=== PATIENT | male | born 1990 | race Caucasian/White ===

== ENCOUNTER 2018-09-24 21:04 | Emergency (ER) | payer MEDICAID ==
--- NOTE | 2018-09-24 21:20 | ERPHSYRPT ---
- History of Present Illness Time Seen by Provider: 09/24/18 21:20 Source: patient, family Exam Limitations: no limitations Physician History: 28 y/o white male with no allergies presents to ED soon after being stung by a wasp. right forearm swelled up and has associated redness. mild pain. pt did not take anything for it. Timing/Duration: today Severity: mild Associated Symptoms: denies symptoms, No nausea, No vomiting, No abdominal pain , No shortness of breath, No chest pain Allergies/Adverse Reactions: No Known Drug Allergies Allergy (Unverified 09/24/18 21:10) - Review of Systems Constitutional: No Symptoms Eyes: No Symptoms Ears, Nose, & Throat: No Symptoms Respiratory: No Symptoms Cardiac: No Symptoms Abdominal/Gastrointestinal: No Symptoms Genitourinary Symptoms: No Symptoms Skin: Other (mild localized swelling redness right forearm.) Neurological: No Symptoms Psychological: No Symptoms Endocrine: No Symptoms Hematologic/Lymphatic: No Symptoms Immunological/Allergic: No Symptoms All Other Systems: Reviewed and Negative - Past Medical History Pertinent Past Medical History: Yes Neurological History: No Pertinent History ENT History: No Pertinent History Cardiac History: No Pertinent History Respiratory History: No Pertinent History Endocrine Medical History: No Pertinent History Musculoskeletal History: No Pertinent History GI Medical History: No Pertinent History History: No Pertinent History Psycho-Social History: No Pertinent History Male Reproductive Disorders: No Pertinent History - Past Surgical History Neuro Surgical History: No Pertinent History Cardiac: No Pertinent History Respiratory: No Pertinent History Gastrointestinal: No Pertinent History Genitourinary: No Pertinent History Musculoskeletal: No Pertinent History Male Surgical History: No Pertinent History - Nursing Vital Signs Nursing Vital Signs: Initial Vital Signs Temperature 98.2 F 09/24/18 21:11 Pulse Rate 87 09/24/18 21:11 Blood Pressure 146/86 09/24/18 21:11 O2 Sat by Pulse Oximetry 98 09/24/18 21:11 Pain Scale Pain Intensity 2 - Physical Exam General Appearance: no apparent distress, alert, anxiety Eye Exam: PERRL/EOMI, eyes nml inspection Ears, Nose, Throat Exam: normal ENT inspection, moist mucous membranes Neck Exam: normal inspection, non-tender, supple, full range of motion Respiratory Exam: normal breath sounds, lungs clear, airway intact, No chest tenderness, No respiratory distress Cardiovascular Exam: regular rate/rhythm, normal heart sounds Gastrointestinal/Abdomen Exam: No tenderness Rectal Exam: not done, No tenderness Back Exam: normal inspection, normal range of motion, No vertebral tenderness Extremity Exam: normal inspection, normal range of motion, No pelvis stable Neurologic Exam: alert, oriented x 3, cooperative, protozoology teacher II-XII nml as tested Skin Exam: other (localized swelling and redness right forearm around wasp sting site) Lymphatic Exam: No adenopathy SpO2 Interpretation: normal O2 Delivery: Room Air - Course Nursing assessment & vital signs reviewed: Yes Ordered Tests: Medication Summary Generic Name Dose Route Start Last Admin Trade Name Freq PRN Reason Stop Dose Admin Prednisone 20 mg 09/25/18 21:56 Deltasone 20 Mg PO 09/25/18 21:57 STAT ONE Discontinued Medications Generic Name Dose Route Start Last Admin Trade Name Freq PRN Reason Stop Dose Admin Diphenhydramine HCl 50 mg 09/24/18 21:56 Benadryl 25 Mg Capsule PO 09/24/18 21:57 STAT ONE Diphenhydramine HCl Confirm 09/24/18 22:00 Benadryl 25 Mg Capsule Administered 09/24/18 22:01 Dose 50 mg .ROUTE .STK-MED ONE Famotidine 20 mg 09/24/18 21:55 Pepcid 20 Mg PO 09/24/18 21:56 STAT ONE Famotidine Confirm 09/24/18 22:00 Pepcid 20 Mg Administered 09/24/18 22:01 Dose 20 mg .ROUTE .STK-MED ONE Prednisone Confirm 09/24/18 22:00 Deltasone 20 Mg Administered 09/24/18 22:01 Dose 20 mg .ROUTE .STK-MED ONE - Progress Progress: improved Counseled pt/family regarding: diagnosis, need for follow-up - Departure Departure Disposition: Home Clinical Impression: Allergic reaction Condition: Stable Critical Care Time: No Additional Instructions: keep area clean daily. add benadryl 25mg orally 3 times daily for 4 days. return to ED if symptoms worsen. Prescriptions: Prednisone 10 mg [Deltasone 10 mg] 10 mg PO TID #12 tablet Ranitidine HCl [Zantac] 150 mg PO BID 5 Days #10 tablet
[2018-09-24] MEDS ORDERED: DELTASONE 20 MG ONE (22:00)
[2018-09-24] MEDS ORDERED: Pepcid 20 MG ONE (22:00)
[2018-09-24] MEDS ORDERED: BENADRYL 25 MG CAPSULE ONE (22:00)
[2018-09-24] MEDS: Pepcid 20 MG PO ONE (22:07)
[2018-09-24] MEDS: DELTASONE 20 MG PO ONE (22:07)
[2018-09-24] MEDS: BENADRYL 25 MG CAPSULE PO ONE (22:07)
[2018-09-24 22:10] VITALS: BP 131/71; PULSE 76; O2SAT 99
== END 2018-09-24 22:20 | disposition home or self-care (01) ==
LOC: ED 21:04
DX: M79.89 Other specified soft tissue disorders (principal); T63.441A Toxic effect of venom of bees, accidental (unintentional), initial encounter
CPT/HCPCS: 99283; A9270-GY

== ENCOUNTER 2018-11-30 17:44 | Emergency (ER) | payer MEDICAID ==
[2018-11-30 18:04] VITALS: BP 156/88; PULSE 84; O2SAT 99
--- NOTE | 2018-11-30 18:37 | ERPHSYRPT ---
- History of Present Illness Time Seen by Provider: 11/30/18 18:10 Source: patient Exam Limitations: no limitations Patient Subjective Stated Complaint: pt reports he has a bad tooth, right side molar, reports he was seen at [facility] and treated with amoxicillin, states his condition did not improve so he saw a dentist and was prescribed clindamycin on 11/27/18, 300mg TID, reports he only took 4 doses. pt now reports that he believes he is having an allergic reaction to the clindamycin. reports diarrhea , feeling lightheaded, and tired. pt states his dentist plans to extract this tooth monday. pt denies any rash, shortness of breath, or pain at this time. Triage Nursing Assessment: pt is aox3, pt appears in no apparent distress, pupils perrl, afebrile, resps easy and non labored, pt with swelling to the right side of the face. pt skin pink warm dry. Physician History: Thinks the Clindamycin (300 TID) is causing his diarrhea - on two days after Amoxicillin and had been getting swollen R face. Severity: moderate (Swelling - not pain) Allergies/Adverse Reactions: cephalexin [From Keflex] Adverse Reaction (Verified 11/30/18 18:06) dehydration pt reports when he took keflex he became severely dehydrated, denied any rash, shortness of breath or pain. Hx Tetanus, Diphtheria Vaccination/Date Given: No Hx Influenza Vaccination/Date Given: No Hx Pneumococcal Vaccination/Date Given: No Immunizations Up to Date: Yes - Review of Systems Constitutional: No Symptoms, No Fever, No Chills Eyes: No Symptoms Ears, Nose, & Throat: Other (R face swelling) All Other Systems: Reviewed and Negative - Past Medical History Pertinent Past Medical History: No Neurological History: No Pertinent History ENT History: No Pertinent History Cardiac History: No Pertinent History Respiratory History: No Pertinent History Endocrine Medical History: No Pertinent History Musculoskeletal History: No Pertinent History GI Medical History: No Pertinent History History: No Pertinent History Psycho-Social History: No Pertinent History Male Reproductive Disorders: No Pertinent History - Past Surgical History Past Surgical History: No Neuro Surgical History: No Pertinent History Cardiac: No Pertinent History Respiratory: No Pertinent History Gastrointestinal: No Pertinent History Genitourinary: No Pertinent History Musculoskeletal: No Pertinent History Male Surgical History: No Pertinent History - Social History Smoking Status: Current every day smoker Exposure to second hand smoke: Yes Drug Use: none Patient Lives Alone: No - Nursing Vital Signs Nursing Vital Signs: Initial Vital Signs Temperature 97.6 F 11/30/18 17:52 Pulse Rate 84 11/30/18 17:52 Respiratory Rate 20 11/30/18 17:52 Blood Pressure 156/88 11/30/18 17:52 O2 Sat by Pulse Oximetry 99 11/30/18 17:52 Pain Scale Pain Intensity 0 - Physical Exam General Appearance: no apparent distress Eye Exam: PERRL/EOMI, eyes nml inspection Ears, Nose, Throat Exam: normal ENT inspection, TMs normal, pharynx normal, moist mucous membranes, other (mild R maxillary edema), No pharyngeal erythema Neck Exam: normal inspection, non-tender, supple, full range of motion Respiratory Exam: normal breath sounds, chest tenderness, lungs clear Cardiovascular Exam: regular rate/rhythm, normal heart sounds Neurologic Exam: alert, oriented x 3, cooperative Skin Exam: normal color, warm, dry, No rash SpO2: 99 - Course Nursing assessment & vital signs reviewed: Yes - Progress Progress Note: 12/01/18 19:51 Educated patient that it most likely was not a true allergy to clindamyacin; that it would be better if he could continue with th RX on thru Monday when she sees dentist for tooth extraction. Patient and spouse voiced understanding and satisfaction. 12/01/18 19:53 - Departure Departure Disposition: Home Clinical Impression: Dental abscess Condition: Good Critical Care Time: No Referrals: DOCTOR,NO FAMILY [Primary Care Provider] - Additional Instructions: Resume taking the Clindamyacin - best to take three times a day; if diarrhea worsens - may try twice a day - but best to continue to take it until the dentist sees you Monday for definitive care. If face swells more and you are running a fever of 101.5 or above, return to ER. Keep well hydrated while having the diarrhea.
== END 2018-11-30 19:04 | disposition home or self-care (01) ==
LOC: ED 17:44
DX: K04.7 Periapical abscess without sinus (principal)
CPT/HCPCS: 99283

== ENCOUNTER 2019-11-04 08:39 | Emergency (ER) | payer SELFPAY ==
[2019-11-04 08:48] VITALS: BP 138/78; PULSE 83; O2SAT 98
--- NOTE | 2019-11-04 08:55 | ERPHSYRPT ---
- History of Present Illness Time Seen by Provider: 11/04/19 08:47 Source: patient Patient Subjective Stated Complaint: Pt states that he woke up this morning with his left upper side of cheek/jaw was swollen, pt states that he has a broken tooth but dentist isn't open until tomorrow, denies any pain Triage Nursing Assessment: Pt brought self to the ER, vitals wnl, left cheek swollen, tooth has been broken for about a year but hasn't had any issues until this morning, denies any other probelems and denies pain Physician History: 29 years old male with history of bad dentition presented in the ER with chief complaint of left facial swelling when he woke up this morning associated with some pressure and tightness. Patient report he has a broken tooth few days ago left upper but denies any pain in the tooth. No fever or chills reported. Reports discomfort with movements of jaw. Timing/Duration: abrupt onset Severity: moderate ENT Location: facial Prearrival Treatment: no prearrival treatment Allergies/Adverse Reactions: cephalexin [From Keflex] Adverse Reaction (Verified 11/04/19 08:48) dehydration pt reports when he took keflex he became severely dehydrated, denied any rash, shortness of breath or pain. Hx Tetanus, Diphtheria Vaccination/Date Given: No Hx Influenza Vaccination/Date Given: No Hx Pneumococcal Vaccination/Date Given: No Travel Risk - International Travel Have you traveled outside of the country in past 3 weeks: No - Coronavirus Screening Are you exhibiting any of the following symptoms?: No Close contact with a COVID-19 positive Pt in past 14-21 Days: No - Review of Systems Constitutional: No Symptoms Eyes: No Symptoms Respiratory: No Symptoms Cardiac: No Symptoms Abdominal/Gastrointestinal: No Symptoms Genitourinary Symptoms: No Symptoms Musculoskeletal: No Symptoms Skin: No Symptoms Neurological: No Symptoms Psychological: No Symptoms Endocrine: No Symptoms Hematologic/Lymphatic: No Symptoms Immunological/Allergic: No Symptoms - Past Medical History Pertinent Past Medical History: No Neurological History: No Pertinent History ENT History: No Pertinent History Cardiac History: No Pertinent History Respiratory History: No Pertinent History Endocrine Medical History: No Pertinent History Musculoskeletal History: No Pertinent History GI Medical History: No Pertinent History History: No Pertinent History Psycho-Social History: No Pertinent History Male Reproductive Disorders: No Pertinent History - Past Surgical History Past Surgical History: No Neuro Surgical History: No Pertinent History Cardiac: No Pertinent History Respiratory: No Pertinent History Gastrointestinal: No Pertinent History Genitourinary: No Pertinent History Musculoskeletal: No Pertinent History Male Surgical History: No Pertinent History - Social History Smoking Status: Current every day smoker Exposure to second hand smoke: Yes Drug Use: none Patient Lives Alone: Yes - Nursing Vital Signs Nursing Vital Signs: Initial Vital Signs Temperature 97.9 F 11/04/19 08:44 Pulse Rate 83 11/04/19 08:44 Blood Pressure 138/78 11/04/19 08:44 O2 Sat by Pulse Oximetry 98 11/04/19 08:44 Pain Scale Pain Intensity 0 - Physical Exam General Appearance: no apparent distress, alert Eye Exam: bilateral eye: normal inspection, PERRL, EOMI Nasal Exam: normal inspection Throat Exam: normal, pharynx normal, dental tenderness (Upper premolar and molar with broken tooth), maxillary swelling (Left), moist mucus membranes Neck Exam: normal inspection, non-tender, supple, full range of motion Cardiovascular/Respiratory Exam: chest non-tender, normal breath sounds, regular rate/rhythm Neurologic Exam: alert, oriented x 3, cooperative, grinding room supervisor II-XII nml as tested Skin Exam: normal color SpO2 Interpretation: normal SpO2: 98 O2 Delivery: Room Air - Course Nursing assessment & vital signs reviewed: Yes - Progress Progress: unchanged Progress Note: 11/04/19 He is started on Augmentin as patient is developing swelling the left upper jaw to avoid development of abscess. Recommended outpatient dental follo w-up. Counseled pt/family regarding: diagnosis, need for follow-up - Departure Departure Disposition: Home Clinical Impression: Dental infection Condition: Stable Critical Care Time: No Referrals: DOCTOR,NO FAMILY [Primary Care Provider] - LAURA MARTINEZ DDS [NON-STAFF PHY W/O PRIVILEGES] - (call tomorrow for appointment) Instructions: Tooth Abscess (DC), Dental Pain (DC) Additional Instructions: Take Tylenol/ibuprofen as needed for pain. Follow-up with your dentist for reevaluation. Return to ER for any worsening. Prescriptions: Amox Tr/Potass Clav. 875 mg [Augmentin 875-125 Tablet] 875 mg PO BID #20 tablet
== END 2019-11-04 09:02 | disposition home or self-care (01) ==
LOC: ED 08:39
DX: K04.7 Periapical abscess without sinus (principal)
CPT/HCPCS: 99283

== ENCOUNTER 2019-12-09 19:15 | Emergency (ER) | payer MEDICAID ==
[2019-12-09] MEDS ORDERED: Zithromax 250 MG TABLET PO ONE (19:33)
[2019-12-09] MEDS ORDERED: Rocephin 1000 MG INJ ONE (19:37)
[2019-12-09] MEDS ORDERED: Zithromax 250 MG TABLET ONE (19:37)
[2019-12-09] MEDS ORDERED: Rocephin 1000 MG INJ IM ONE (19:37)
--- NOTE | 2019-12-09 20:05 | ERPHSYRPT ---
- History of Present Illness Source: patient Patient Subjective Stated Complaint: pt states "It began to burn while I pee. I have been having dribbling and discharge." pt states, "I think I have chlamydia." Triage Nursing Assessment: pt ambulated into the er; pt is axo x4; c/o burning with urination and discharge; denies pain; urine clear yellow; active bowel sounds in all quads; clear lung sounds in all lobes; no tenderness present with palpation to abdomen; redness present to penis; hypertension Physician History: 29 yo wm w dysuria x1 day/penile discharge x 2 days after having unprotected sex. Pt denies frequency/hematuria/abdominal pain/N/V/D. Timing/Duration: day(s) (2 days) Activites at Onset: sexual activity Quality: other (dysuria) Onset Location: unknown Pain Radiation: none Severity of Pain-Max: mild Severity of Pain-Current: mild Modifying Factors: Improves With: urinating Associated Symptoms: dysuria, No abdominal pain, No fever, No chills, No diaphoresis, No nausea, No vomiting, No nocturia, No polyuria, No urinary f requency, No loss of bladder control, No lower back pain, No lumps, No mass, No swelling, No syncope Prior abdominal problems: none Sexual intercourse history: unprotected intercourse Allergies/Adverse Reactions: cephalexin [From Keflex] Adverse Reaction (Verified 12/09/19 19:20) dehydration pt reports when he took keflex he became severely dehydrated, denied any rash, shortness of breath or pain. Hx Tetanus, Diphtheria Vaccination/Date Given: No Hx Influenza Vaccination/Date Given: No Hx Pneumococcal Vaccination/Date Given: No Travel Risk - International Travel Have you traveled outside of the country in past 3 weeks: No - Coronavirus Screening Are you exhibiting any of the following symptoms?: No Close contact with a COVID-19 positive Pt in past 14-21 Days: No - Past Medical History Pertinent Past Medical History: No Neurological History: No Pertinent History ENT History: No Pertinent History Cardiac History: No Pertinent History Respiratory History: No Pertinent History Endocrine Medical History: No Pertinent History Musculoskeletal History: No Pertinent History GI Medical History: No Pertinent History History: No Pertinent History Psycho-Social History: No Pertinent History Male Reproductive Disorders: No Pertinent History - Past Surgical History Past Surgical History: No Neuro Surgical History: No Pertinent History Cardiac: No Pertinent History Respiratory: No Pertinent History Gastrointestinal: No Pertinent History Genitourinary: No Pertinent History Musculoskeletal: No Pertinent History Male Surgical History: No Pertinent History - Social History Smoking Status: Current every day smoker Exposure to second hand smoke: Yes Drug Use: none Patient Lives Alone: Yes Significant Family History: no pertinent family hx - Review of Systems Constitutional: No Symptoms Eyes: No Symptoms Ears, Nose, & Throat: No Symptoms Respiratory: No Symptoms Cardiac: No Symptoms Abdominal/Gastrointestinal: No Symptoms Musculoskeletal: No Symptoms Skin: No Symptoms Neurological: No Symptoms Psychological: No Symptoms Endocrine: No Symptoms Hematologic/Lymphatic: No Symptoms Immunological/Allergic: No Symptoms - Nursing Vital Signs Nursing Vital Signs: Initial Vital Signs Temperature 97.3 F 12/09/19 19:21 Pulse Rate 70 12/09/19 19:21 Respiratory Rate 16 12/09/19 19:21 Blood Pressure 156/89 12/09/19 19:21 O2 Sat by Pulse Oximetry 100 12/09/19 19:21 Pain Scale Pain Intensity 0 - Physical Exam General Appearance: no apparent distress Eye Exam: PERRL/EOMI Ears, Nose, Throat Exam: normal ENT inspection, TMs normal, pharynx normal, moist mucous membranes Neck Exam: normal inspection, non-tender, supple, full range of motion, No meningismus, No mass, No Brudzinski, No Kernig's Respiratory Exam: normal breath sounds, lungs clear, airway intact, No respiratory distress Cardiovascular Exam: regular rate/rhythm, normal heart sounds, normal peripheral pulses Gastrointestinal/Abdomen Exam: soft, normal bowel sounds, No tenderness Male Genital Exam: normal genitalia Back Exam: normal inspection Extremity Exam: normal inspection, normal range of motion Neurologic Exam: alert, oriented x 3, cooperative, architecture analyst II-XII nml as tested, normal mood/affect, nml cerebellar function, nml station & gait, sensation nml, No motor deficits, No sensory deficit Skin Exam: normal color, warm, dry Lymphatic Exam: No adenopathy SpO2 Interpretation: normal SpO2: 100 O2 Delivery: Room Air - Course Nursing assessment & vital signs reviewed: Yes Ordered Tests: Active Orders 24 hr Category Date Time Status CULTURE,URINE Stat Lab 12/09/19 19:30 Received UA W/RFX UR CULTURE Stat Lab 12/09/19 19:30 Completed Medication Summary Discontinued Medications Generic Name Dose Route Start Last Admin Trade Name Freq PRN Reason Stop Dose Admin Azithromycin 1,000 mg 12/09/19 19:33 12/09/19 19:40 Zithromax 250 Mg Tablet PO 12/09/19 19:34 1,000 mg STAT ONE Administration Azithromycin Confirm 12/09/19 19:37 Zithromax 250 Mg Tablet Administered 12/09/19 19:38 Dose 1,000 mg .ROUTE .STK-MED ONE Ceftriaxone Sodium 1,000 mg 12/09/19 19:37 12/09/19 19:40 Rocephin 1000 Mg Inj IM 12/09/19 19:38 1,000 mg STAT ONE Administration Ceftriaxone Sodium Confirm 12/09/19 19:37 Rocephin 1000 Mg Inj Administered 12/09/19 19:38 Dose 1,000 mg .ROUTE .STK-MED ONE Lab/Rad Data: Laboratory Results 12/09/19 Range/Units 19:30 Urine Color YELLOW (YELLOW) Urine Appearance SLIGHTLY CLOUDY (CLEAR) Urine pH 7.0 (5-6) Ur Specific Mouthcard 1.009 (1.005-1.025) Urine Protein NEGATIVE (Negative) Urine Ketones NEGATIVE (NEGATIVE) Urine Blood NEGATIVE (0-5) Rigo/ul Urine Nitrite NEGATIVE (NEGATIVE) Urine Bilirubin NEGATIVE (NEGATIVE) Urine Urobilinogen NEGATIVE (0-1) mg/dL Ur Leukocyte Esterase LARGE (NEGATIVE) Urine WBC (Auto) 26-50 (0-5) /HPF Urine RBC (Auto) NONE (0-2) /HPF U Epithel Cells (Auto) NONE (FEW) /HPF Urine Bacteria (Auto) FEW (NEGATIVE) /HPF Urine Mucus (Auto) SLIGHT (NEGATIVE) /HPF Urine Yeast (Budding) Few (NEGATIVE) /HPF Urine Culture Reflexed YES (NO) Urine Glucose NEGATIVE (NEGATIVE) mg/dL - Progress Progress Note: 12/09/19 20:04 1gm IM rocephin/1gm po zithromax 12/09/19 20:27 Pt refused HIV/Syphllis/Hep - Departure Departure Disposition: Home Clinical Impression: UTI (urinary tract infection), STD exposure Condition: Stable Critical Care Time: No Referrals: DOCTOR,NO FAMILY [Primary Care Provider] - Instructions: Urinary Tract Infection, Adult (DC) Additional Instructions: You have been treated for gonorrhea/chlamydia Start Bactrim twice a day for 5 days Follow up with your family MD in 2-3 days Return to ER as needed Prescriptions: Smz/Tmp Ds Tablet [Bactrim Ds Tablet] 1 tab PO Q12H #10 tablet
[2019-12-09 20:19] LABS: Appearance SLIGHTLY CLOUDY (CLEAR); Bilirubin NEGATIVE (NEGATIVE); Blood NEGATIVE Ery/ul (0-5); Glucose NEGATIVE (NEGATIVE); Ketones NEGATIVE (NEGATIVE); Leukocyte Esterase LARGE (NEGATIVE); Mucus SLIGHT /HPF (NEGATIVE); Nitrite NEGATIVE (NEGATIVE); Protein,Urine Dip NEGATIVE (Negative); Specific Gravity 1.009 (1.005-1.025); Urobilinogen NEGATIVE mg/dL (0-1); WBC 26-50 /HPF (0-5)
[2019-12-09 20:20] LABS: Bacteria FEW /HPF (NEGATIVE); Budding Yeast Few /HPF (NEGATIVE)
[2019-12-09 20:37] VITALS: BP 132/84; PULSE 64
[2019-12-09 23:41] VITALS: O2SAT 100
== END 2019-12-09 20:37 | disposition home or self-care (01) ==
LOC: ED 19:15
DX: N39.0 Urinary tract infection, site not specified (principal); Z20.2 Contact with and (suspected) exposure to infections with a predominantly sexual mode of transmission
CPT/HCPCS: 81001; 87086; 87491; 87591; 96372; 99284; J0696; A9270-GY

== ENCOUNTER 2020-03-17 22:30 | Emergency (ER) | payer SELFPAY ==
[2020-03-17 22:38] VITALS: BP 157/87; PULSE 68; O2SAT 100
[2020-03-17] MEDS ORDERED: Adacel Vial IM ONE ×2 (22:45→22:53)
[2020-03-17] MEDS ORDERED: Cleocin Phosphate IV 600 MG/4 ML IM STA (22:46)
--- NOTE | 2020-03-17 22:50 | ERPHSYRPT ---
- History of Present Illness Time Seen by Provider: 03/17/20 22:40 Source: patient Patient Subjective Stated Complaint: pt c/o bite to rt side of cheek on face Triage Nursing Assessment: pt c/o some type of bite to rt side of cheek on face which he noticed Monday. Pt states, "it has gotten more swollen and red". Small knot like area noted under the skin, bite terrance itself it 0.2 x 0.2 cm, small amt of edema and redness noted. Pt denies any pain. Physician History: Patient is a 30-year-old male presents to emergency department with cellulitis to the right cheek. Patient states he was bitten by possibly spider at home 2 days ago. Over the past couple days the area became more tender and swollen. The area is now red. No fever. No headache. No nausea or vomiting. Symptoms are mild to moderate in intensity. No specific worsening or improving factors. Patient voices no other complaints or concerns at this time. Timing/Duration: day(s) (2 days ago) Severity: moderate Modifying Factors: Improves With: nothing Associated Symptoms: denies symptoms Allergies/Adverse Reactions: cephalexin [From Keflex] Adverse Reaction (Verified 03/17/20 22:46) dehydration pt reports when he took keflex he became severely dehydrated, denied any rash, shortness of breath or pain. Hx Tetanus, Diphtheria Vaccination/Date Given: No Hx Influenza Vaccination/Date Given: No Hx Pneumococcal Vaccination/Date Given: No Immunizations Up to Date: No Travel Risk - International Travel Have you traveled outside of the country in past 3 weeks: No - Coronavirus Screening Are you exhibiting any of the following symptoms?: No Close contact with a COVID-19 positive Pt in past 14-21 Days: No - Review of Systems Constitutional: No Symptoms, No Fever, No Chills Eyes: No Symptoms Ears, Nose, & Throat: No Symptoms Respiratory: No Symptoms, No Cough, No Dyspnea Cardiac: No Symptoms, No Chest Pain, No Edema, No Syncope Abdominal/Gastrointestinal: No Symptoms, No Abdominal Pain, No Nausea, No Vomiting, No Diarrhea Genitourinary Symptoms: No Symptoms, No Dysuria Musculoskeletal: No Symptoms, No Back Pain, No Neck Pain Skin: No Symptoms, No Rash Neurological: No Symptoms, No Dizziness, No Focal Weakness, No Sensory Changes Psychological: No Symptoms Endocrine: No Symptoms Hematologic/Lymphatic: No Symptoms Immunological/Allergic: No Symptoms All Other Systems: Reviewed and Negative - Past Medical History Pertinent Past Medical History: No Neurological History: No Pertinent History ENT History: No Pertinent History Cardiac History: No Pertinent History Respiratory History: No Pertinent History Endocrine Medical History: No Pertinent History Musculoskeletal History: No Pertinent History GI Medical History: No Pertinent History History: No Pertinent History Psycho-Social History: No Pertinent History Male Reproductive Disorders: No Pertinent History - Past Surgical History Past Surgical History: No Neuro Surgical History: No Pertinent History Cardiac: No Pertinent History Respiratory: No Pertinent History Gastrointestinal: No Pertinent History Genitourinary: No Pertinent History Musculoskeletal: No Pertinent History Male Surgical History: No Pertinent History - Social History Smoking Status: Current every day smoker How long have you smoked: 15 yrs Exposure to second hand smoke: Yes Drug Use: none Patient Lives Alone: Yes Significant Family History: no pertinent family hx - Nursing Vital Signs Nursing Vital Signs: Initial Vital Signs Temperature 98.2 F 03/17/20 22:36 Pulse Rate 68 03/17/20 22:36 Respiratory Rate 16 03/17/20 22:36 Blood Pressure 157/87 03/17/20 22:36 O2 Sat by Pulse Oximetry 100 03/17/20 22:36 Pain Scale Pain Intensity 0 - Physical Exam General Appearance: no apparent distress, alert Eye Exam: PERRL/EOMI, eyes nml inspection Ears, Nose, Throat Exam: normal ENT inspection, TMs normal, pharynx normal, moist mucous membranes Neck Exam: normal inspection, non-tender, supple, full range of motion Respiratory Exam: normal breath sounds, lungs clear, No respiratory distress Cardiovascular Exam: regular rate/rhythm, normal heart sounds, normal peripheral pulses Gastrointestinal/Abdomen Exam: soft, normal bowel sounds, No tenderness, No mass Back Exam: normal inspection, normal range of motion, No CVA tenderness, No vertebral tenderness Extremity Exam: normal inspection, normal range of motion, pelvis stable Neurologic Exam: alert, oriented x 3, cooperative, normal mood/affect, nml cerebellar function, nml station & gait, sensation nml, No motor deficits Skin Exam: normal color, warm, dry, other (Presents with a 0.2 cm x 0.2 cm area that appears to be an abrasion versus a bite of some sort. No residual foreign body observed. The adjacent soft tissue is cellulitic red swollen and warm.), No rash Lymphatic Exam: No adenopathy SpO2 Interpretation: normal SpO2: 100 O2 Delivery: Room Air - Course Nursing assessment & vital signs reviewed: Yes Ordered Tests: Medication Summary Discontinued Medications Generic Name Dose Route Start Last Admin Trade Name María PRN Reason Stop Dose Admin Clindamycin Phosphate 600 mg 03/17/20 22:46 03/17/20 22:54 Cleocin Phosphate Iv 600 Mg/4 Ml IM 03/17/20 22:47 600 mg ONCE STA Administration Clindamycin Phosphate Confirm 03/17/20 22:53 Cleocin Phosphate Iv 600 Mg/4 Ml Administered 03/17/20 22:54 Dose 600 mg .ROUTE .STK-MED ONE Diphtheria/Tetanus/Acell Pertussis 0.5 ml 03/17/20 22:45 03/17/20 22:55 Adacel Vial IM 03/17/20 22:46 0.5 ml .ONCE ONE Administration Diphtheria/Tetanus/Acell Pertussis Confirm 03/17/20 22:53 Adacel Vial Administered 03/17/20 22:54 Dose 0.5 ml IM .STK-MED ONE - Progress Progress: improved Progress Note: 03/17/20 22:59 . He is well. Patient has no pain at this time. We updated patient's tetanus. Patient received 600 mg IM clindamycin. A prescription for the same will be forwarded the patient's pharmacy. Patient does not have a primary care doctor. A primary care doctor was assigned to patient. Patient agrees to follow-up with his primary care doctor within 48 hours for reevaluation. Patient voices no other complaints concerns at this time. Counseled pt/family regarding: diagnosis, need for follow-up - Departure Departure Disposition: Home Clinical Impression: Facial cellulitis Condition: Stable Critical Care Time: No Referrals: DOCTOR,NO FAMILY [Primary Care Provider] - PLACIDO GARCIA MD [ACTIVE STAFF] - Additional Instructions: Discharge/Care Plan SWETHA LOCKE was seen on 03/17/20 in the Emergency Room. The patient was counseled regarding Diagnosis,Lab results, Imaging studies, need for follow up and when to return to the Emergency Room. Prescriptions given: Discharge Note I have spoken with the patient and/or caregivers. I have explained the patient's condition, diagnosis and treatment plan based on the information available to me at this time. I have answered the patient's and/or caregiver's questions and addressed any concerns. The patient and/or caregivers have as good understanding of the patient's diagnosis, condition and treatment plan as can be expected at this point. The vital signs have been stable. The patient's condition is stable and appropriate for discharge from the emergency department. The patient will pursue further outpatient evaluation with the primary care physician or other designated or consulting physician as outlined in the discharge instructions. The patient and/or caregivers are agreeable to this plan of care and follow-up instructions have been explained in detail. The patient and/or caregivers have received these instruction. The patient/and or caregivers are aware that any significant change in condition or worsening of symptoms should prompt an immediate return to this or the closest emergency department or call 911. Prescriptions: Clindamycin HCl 150 mg [Cleocin 150 mg Capsule] 2 cap PO QID 7 Days #56 capsule
[2020-03-17] MEDS ORDERED: Cleocin Phosphate IV 600 MG/4 ML ONE (22:53)
== END 2020-03-17 23:14 | disposition home or self-care (01) ==
LOC: ED 22:30
DX: L03.211 Cellulitis of face (principal); W64.XXXA Exposure to other animate mechanical forces, initial encounter
CPT/HCPCS: 90471; 90715; 96372; 99283

== ENCOUNTER 2020-03-18 18:43 | Emergency (ER) | payer SELFPAY ==
[2020-03-18 18:59] VITALS: BP 133/81; PULSE 74; O2SAT 99
[2020-03-18] MEDS ORDERED: BACTRIM DS TABLET PO ONE (19:08)
[2020-03-18] MEDS: BACTRIM DS TABLET PO ONE (19:08)
--- NOTE | 2020-03-18 19:08 | ERPHSYRPT ---
- History of Present Illness Time Seen by Provider: 03/18/20 18:47 Source: patient Exam Limitations: no limitations Patient Subjective Stated Complaint: Abscess Triage Nursing Assessment: Patient ambulated back to ED and transferred self to bed. Patient A+O X3. Patient's skin pink, warm and dry. Patient was seen last night for abscess to right side of face. Patient was prescribed clindamycin by ER doctor last night and he states it's making him not think right. Patient states every time he takes clinadamycin he feels this way. Patient doesn't have PCP so he came to ED to have atb changed to something else. Patient denies pain or discomfort. Physician History: 30 years male with history of small abscess on the right cheek which started 2 days ago, busted and was evaluated last night, prescribed clindamycin and patient reported in the ER today with feeling fuzzy and not acting right. Patient reports every time he takes clindamycin this happens and wants to have some change antibiotic. Denies any fever or chills. Still have dull aching pain in the right cheek. Denies any swelling of gums or tooth ache. No fever or chills reported. Timing/Duration: today, gradual onset, worse Location: face Possible Causes: no cause identified Associated Symptoms: rash, swelling/mass/lumps Allergies/Adverse Reactions: cephalexin [From Keflex] Adverse Reaction (Verified 03/18/20 18:53) dehydration pt reports when he took keflex he became severely dehydrated, denied any rash, shortness of breath or pain. Hx Tetanus, Diphtheria Vaccination/Date Given: No Hx Influenza Vaccination/Date Given: No Hx Pneumococcal Vaccination/Date Given: No Immunizations Up to Date: Yes Travel Risk - International Travel Have you traveled outside of the country in past 3 weeks: No - Coronavirus Screening Are you exhibiting any of the following symptoms?: No Close contact with a COVID-19 positive Pt in past 14-21 Days: No - Review of Systems Constitutional: No Symptoms Eyes: No Symptoms Ears, Nose, & Throat: No Symptoms Respiratory: No Symptoms Cardiac: No Symptoms Abdominal/Gastrointestinal: No Symptoms Musculoskeletal: No Symptoms Skin: Rash, Skin Lesions Neurological: No Symptoms Psychological: No Symptoms Endocrine: No Symptoms Hematologic/Lymphatic: No Symptoms Immunological/Allergic: No Symptoms - Past Medical History Pertinent Past Medical History: No Neurological History: No Pertinent History ENT History: No Pertinent History Cardiac History: No Pertinent History Respiratory History: No Pertinent History Endocrine Medical History: No Pertinent History Musculoskeletal History: No Pertinent History GI Medical History: No Pertinent History History: No Pertinent History Psycho-Social History: No Pertinent History Male Reproductive Disorders: No Pertinent History - Past Surgical History Past Surgical History: No Neuro Surgical History: No Pertinent History Cardiac: No Pertinent History Respiratory: No Pertinent History Gastrointestinal: No Pertinent History Genitourinary: No Pertinent History Musculoskeletal: No Pertinent History Male Surgical History: No Pertinent History - Social History Smoking Status: Current every day smoker How long have you smoked: 15 yrs Exposure to second hand smoke: Yes Drug Use: none Patient Lives Alone: Yes Significant Family History: no pertinent family hx - Nursing Vital Signs Nursing Vital Signs: Initial Vital Signs Temperature 98.0 F 03/18/20 18:54 Pulse Rate 74 03/18/20 18:54 Respiratory Rate 18 03/18/20 18:54 Blood Pressure 133/81 03/18/20 18:54 O2 Sat by Pulse Oximetry 99 03/18/20 18:54 Pain Scale Pain Intensity 0 - Physical Exam General Appearance: no apparent distress, alert Eye Exam: PERRL/EOMI, eyes nml inspection Ears, Nose, Throat Exam: other (Small scabbed lesion right cheek below the lower lid. Minimal erythema/induration around. Warm and mildly tender to touch. Normal gum swelling.) Neck Exam: normal inspection, non-tender, supple, full range of motion Respiratory Exam: normal breath sounds, lungs clear Cardiovascular Exam: regular rate/rhythm, normal heart sounds Neurologic Exam: alert, oriented x 3, cooperative, microbial specialist II-XII nml as tested, normal mood/affect, nml cerebellar function, nml station & gait, sensation nml, No motor deficits, No sensory deficit Skin Exam: normal color SpO2 Interpretation: normal SpO2: 99 O2 Delivery: Room Air - Progress Progress: unchanged Progress Note: 03/18/20 19:06 Has nonfocal neuro exam. I believe he some kind of reaction to clindamycin. I would stop clindamycin and start him on Bactrim which will also cover MRSA. Recommended outpatient follow-up. Do not think he needs any imaging or work-up and is stable for discharge. Counseled pt/family regarding: diagnosis, need for follow-up - Departure Departure Disposition: Home Clinical Impression: Facial cellulitis Condition: Stable Critical Care Time: No Referrals: DOCTOR,NO FAMILY [Primary Care Provider] - VIRGINIA ROBERT MD [ACTIVE STAFF] - (In 2 days for reevaluation) Instructions: MRSA (DC), Wound Infection Additional Instructions: Take Tylenol/ibuprofen as needed. Stop taking clindamycin and start taking Bactrim twice a day. Follow-up with primary care for reevaluation. Return to ER for worsening swelling redness difficulty movements of jaw, fever chills etc. Prescriptions: Smz/Tmp Ds Tablet [Bactrim Ds Tablet] 1 udtab PO BID #14 tablet
== END 2020-03-18 19:25 | disposition home or self-care (01) ==
LOC: ED 18:43
DX: T78.8XXA Other adverse effects, not elsewhere classified, initial encounter (principal); L03.211 Cellulitis of face
CPT/HCPCS: 99283; A9270-GY

== ENCOUNTER 2020-03-20 21:38 | Emergency (ER) | payer SELFPAY ==
[2020-03-20 22:03] VITALS: O2SAT 100
--- NOTE | 2020-03-20 22:33 | ERPHSYRPT ---
- History of Present Illness Time Seen by Provider: 03/20/20 21:50 Source: patient Exam Limitations: no limitations Patient Subjective Stated Complaint: "I think I'm allergic to this new antibiotic." Triage Nursing Assessment: Patient reported that was recently treated for a cyst. patient reported that he took a single dose of bactrim in the ED two days prior. patient reported that following taking the bactrim, he started feeling "foggy headed" with mild itching. Denied any noticable hives, swelling, shortness of breath, difficulty swallowing. Patient reported that he took benadryl last night and that the symptoms resolved. Today, the patient reported that he noticed a spot on his side and that the internet said that he should get to the ER if he was having any rash. denied sore throat, difficulty swallowing, shortness of breath, swelling, itching, or hives. Pupils PERRL. Oral mucosa pink/moist without any edema/erythema/ulcerations. neck supple non-tender without lymphadenopathy. Symmetrical chest expansion. Heart tones clear S1/S2 with regular rate and rhythm. Lungs clear to auscultation without adventitious sounds or stridor noted. No noted erythema/urticaria with skin pink/warm/dry. Single 0.5cm x 0.5cm area of indruation noted to the left lateral abdomen without exudate or edema noted. Timing/Duration: yesterday Quality: itchy Severity: moderate Location: face, torso Possible Causes: medications Modifying Factors: Improves With: scratching Associated Symptoms: denies symptoms Allergies/Adverse Reactions: clindamycin Allergy (Verified 03/20/20 22:35) confusion cephalexin [From Keflex] Adverse Reaction (Verified 03/20/20 21:44) dehydration pt reports when he took keflex he became severely dehydrated, denied any rash, shortness of breath or pain. Hx Tetanus, Diphtheria Vaccination/Date Given: Yes Hx Influenza Vaccination/Date Given: No Hx Pneumococcal Vaccination/Date Given: No Travel Risk - International Travel Have you traveled outside of the country in past 3 weeks: No - Coronavirus Screening Are you exhibiting any of the following symptoms?: No Close contact with a COVID-19 positive Pt in past 14-21 Days: No - Review of Systems Constitutional: No Fever, No Chills Eyes: No Symptoms Ears, Nose, & Throat: No Symptoms Respiratory: No Cough, No Dyspnea Cardiac: No Chest Pain, No Edema, No Syncope Abdominal/Gastrointestinal: No Abdominal Pain, No Nausea, No Vomiting, No Diarrhea Genitourinary Symptoms: No Dysuria Musculoskeletal: No Back Pain, No Neck Pain Skin: Pruritis, Rash Neurological: No Dizziness, No Focal Weakness, No Sensory Changes Psychological: Anxiety Endocrine: No Symptoms All Other Systems: Reviewed and Negative - Past Medical History Pertinent Past Medical History: No Neurological History: No Pertinent History ENT History: No Pertinent History Cardiac History: No Pertinent History Respiratory History: No Pertinent History Endocrine Medical History: No Pertinent History Musculoskeletal History: No Pertinent History GI Medical History: No Pertinent History History: No Pertinent History Psycho-Social History: No Pertinent History Male Reproductive Disorders: No Pertinent History - Past Surgical History Past Surgical History: No Neuro Surgical History: No Pertinent History Cardiac: No Pertinent History Respiratory: No Pertinent History Gastrointestinal: No Pertinent History Genitourinary: No Pertinent History Musculoskeletal: No Pertinent History Male Surgical History: No Pertinent History - Social History Smoking Status: Current every day smoker How long have you smoked: 15 yrs Exposure to second hand smoke: Yes Drug Use: none Patient Lives Alone: Yes Significant Family History: no pertinent family hx - Nursing Vital Signs Nursing Vital Signs: Initial Vital Signs Temperature 98.3 F 03/20/20 21:39 Pulse Rate 79 03/20/20 21:39 Respiratory Rate 16 03/20/20 21:39 Blood Pressure 150/71 03/20/20 21:39 O2 Sat by Pulse Oximetry 100 03/20/20 21:39 Pain Scale Pain Intensity 0 - Physical Exam General Appearance: no apparent distress, alert Eye Exam: PERRL/EOMI, eyes nml inspection Ears, Nose, Throat Exam: normal ENT inspection, pharynx normal, moist mucous membranes Neck Exam: normal inspection, non-tender, supple, full range of motion Respiratory Exam: normal breath sounds, lungs clear, No respiratory distress Cardiovascular Exam: regular rate/rhythm, normal heart sounds Gastrointestinal/Abdomen Exam: soft, mass, No tenderness Back Exam: normal inspection, normal range of motion, No CVA tenderness, No vertebral tenderness Extremity Exam: normal inspection, normal range of motion Neurologic Exam: alert, oriented x 3, cooperative, normal mood/affect, sensation nml, No motor deficits Skin Exam: normal color, warm, dry, other (2 lesions noted. There is 1 lesion on right upper maxillary area which he has been seen for before and was given clindamycin and then Bactrim DS. Both antibiotics did not agree with him. The other lesion is on his left side abdomen. Not similar in appearance more comedone appearing. Nontender. ) SpO2 Interpretation: normal SpO2: 100 - Course Nursing assessment & vital signs reviewed: Yes - Progress Progress: improved Progress Note: 03/20/20 23:14 Appears to be anxious about his medications. Thinks he may be having a severe allergic reaction and so came to the emergency room. He stated that the clindamycin made him feel foggy and confused. Bactrim DS made him angry and loses appetite. When he noticed the new lesion on the left side of his abdomen, he thought he was having a bad or severe allergic reaction and so came to the emergency room for evaluation. He did not want any treatment here since he feels he is allergic to most of these medicines. He wants to wait until he sees his dentist for his right maxillary lesion and. He feels it is more dental related. He would like to get an x-ray with his dentist and make sure that there is an actual infection there that requires antibiotics and will get one from the dentist. He declined steroids as well. He will tried Benadryl at home since that did make him feel better this morning. Reassurance. We will discharge patient with precautions. Counseled pt/family regarding: diagnosis, need for follow-up - Departure Departure Disposition: Home Clinical Impression: Allergic reaction Condition: Stable Critical Care Time: No Referrals: DOCTOR,NO FAMILY [Primary Care Provider] - Instructions: Adverse Drug Reactions, Adult (DC) Additional Instructions: Monitor rash closely. May take Benadryl for your allergic reaction and itching. Hold all antibiotics until you see your dentist. Avoid touching your face. Return to ER if worse.
[2020-03-20 22:49] VITALS: BP 132/88; PULSE 86
== END 2020-03-20 22:46 | disposition home or self-care (01) ==
LOC: ED 21:38
DX: T78.40XA Allergy, unspecified, initial encounter (principal)
CPT/HCPCS: 99283

== ENCOUNTER 2020-04-07 08:34 | Emergency (ER) | payer SELFPAY ==
[2020-04-07] MEDS ORDERED: TORAdol 30 mg Injection ONE (08:47)
[2020-04-07] MEDS ORDERED: TORAdol 30 mg Injection IM ONE (08:47)
--- NOTE | 2020-04-07 09:06 | XRAY ---
Indication: Low back pain. Comparison: None 3 view lumbar spine demonstrates 6 lumbar segments with partially sacralized L6 with minimal levoscoliosis centered at L4. No other bony, articular, or soft tissue abnormalities.
--- NOTE | 2020-04-07 09:54 | ERPHSYRPT ---
- History of Present Illness Time Seen by Provider: 04/07/20 08:50 Source: patient Exam Limitations: no limitations Patient Subjective Stated Complaint: Back pain Triage Nursing Assessment: Patient ambulated back to ED and transferred self to bed. Patietnt A+O X3. Patient's skin pink, warm and dry. Patient complains of left sided lower back pain intermittent sharp pain on movement. Patient currently denies pain or discomfort. No bruising or visible injuries noted. Physician History: Patient is a 30-year-old male who presents to our ED for evaluation of intermittent low back pain. Pain is primarily localized to his left SI joint. No radiation of pain into the extremities. Pain only occurs with certain motions and positions. Patient has no urinary symptoms. No flank pain. When pain occurs is described as a sharp pain. No nausea or vomiting. Chest pain or shortness of breath. No diarrhea. No rash. No recent back procedures. No saddle anesthesia. No change in bowel bladder function. Symptoms are mild to moderate in intensity. Patient voices no other complaints concerns at this time. Timing/Duration: yesterday Method of Injury: unknown Quality: sharp Back Pain Location: lumbar spine (Pain is just superficial to the left SI joint.) Severity of Pain-Max: moderate Severity of Pain-Current: none Associated Symptoms: No fever, No urinary incontinence, No loss of bowel control, No constipation, No nausea, No vomiting, No problems urinating, No dizziness, No numbness in legs/feet, No weakness, No sensory/motor loss, No tingling in legs/feet, No lower back pain, No muscle spasms Allergies/Adverse Reactions: clindamycin Allergy (Verified 04/07/20 08:39) confusion sulfamethoxazole [From Bactrim] Allergy (Verified 04/07/20 08:39) trimethoprim [From Bactrim] Allergy (Verified 04/07/20 08:39) cephalexin [From Keflex] Adverse Reaction (Verified 04/07/20 08:39) dehydration pt reports when he took keflex he became severely dehydrated, denied any rash, shortness of breath or pain. Hx Tetanus, Diphtheria Vaccination/Date Given: Yes Hx Influenza Vaccination/Date Given: No Hx Pneumococcal Vaccination/Date Given: No Immunizations Up to Date: Yes Travel Risk - International Travel Have you traveled outside of the country in past 3 weeks: No - Coronavirus Screening Are you exhibiting any of the following symptoms?: No Close contact with a COVID-19 positive Pt in past 14-21 Days: No - Review of Systems Constitutional: No Symptoms, No Fever, No Chills Eyes: No Symptoms Ears, Nose, & Throat: No Symptoms Respiratory: No Symptoms, No Cough, No Dyspnea Cardiac: No Symptoms, No Chest Pain, No Edema, No Syncope Abdominal/Gastrointestinal: No Symptoms, No Abdominal Pain, No Nausea, No Vomiting, No Diarrhea Genitourinary Symptoms: No Symptoms, No Dysuria Musculoskeletal: No Symptoms, No Back Pain, No Neck Pain Skin: No Symptoms, No Rash Neurological: No Symptoms, No Dizziness, No Focal Weakness, No Sensory Changes Psychological: No Symptoms Endocrine: No Symptoms Hematologic/Lymphatic: No Symptoms Immunological/Allergic: No Symptoms All Other Systems: Reviewed and Negative - Past Medical History Pertinent Past Medical History: No Neurological History: No Pertinent History ENT History: No Pertinent History Cardiac History: No Pertinent History Respiratory History: No Pertinent History Endocrine Medical History: No Pertinent History Musculoskeletal History: No Pertinent History GI Medical History: No Pertinent History History: No Pertinent History Psycho-Social History: No Pertinent History Male Reproductive Disorders: No Pertinent History - Past Surgical History Past Surgical History: No Neuro Surgical History: No Pertinent History Cardiac: No Pertinent History Respiratory: No Pertinent History Gastrointestinal: No Pertinent History Genitourinary: No Pertinent History Musculoskeletal: No Pertinent History Male Surgical History: No Pertinent History - Social History Smoking Status: Current every day smoker How long have you smoked: 15 yrs Exposure to second hand smoke: Yes Drug Use: none Patient Lives Alone: Yes Significant Family History: no pertinent family hx - Nursing Vital Signs Nursing Vital Signs: Initial Vital Signs Temperature 97.6 F 04/07/20 08:40 Pulse Rate 77 04/07/20 08:40 Respiratory Rate 18 04/07/20 08:40 Blood Pressure 132/80 04/07/20 08:40 O2 Sat by Pulse Oximetry 98 04/07/20 08:40 Pain Scale Pain Intensity 3 - Physical Exam General Appearance: no apparent distress, alert Eye Exam: PERRL/EOMI, eyes nml inspection Neck Exam: normal inspection, non-tender, supple, full range of motion, No meningismus, No midline tenderness Respiratory Exam: normal breath sounds, lungs clear, No respiratory distress Cardiovascular Exam: regular rate/rhythm, normal heart sounds Gastrointestinal Exam: soft, other (No pulsatile abdominal masses.), No tend erness, No mass Back Exam: normal inspection, other (Pain is directly over the left SI joint. Overlying soft tissue intact. No signs of trauma.) Extremity Exam: normal inspection, normal range of motion, No calf tenderness, No pedal edema Neurologic Exam: alert, oriented x 3, cooperative, city constable II-XII nml as tested, normal mood/affect, nml station & gait, sensation nml, No motor deficits Skin Exam: normal color, warm, dry, No rash Lymphatic Exam: No adenopathy SpO2 Interpretation: normal SpO2: 98 O2 Delivery: Room Air - Course Nursing assessment & vital signs reviewed: Yes - Radiology Exams L-Spine X-ray Interpretation: Teleradiologist Report (Lumbar segments with partially sacralized L6 with minimal levoscoliosis centered at L4. No other bony articular or soft tissue abnormalities observed) Ordered Tests: Active Orders 24 hr Category Date Time Status LUMBAR LIMITED (2 OR 3 VIEWS) Stat Exams 04/07/20 08:59 Completed Medication Summary Discontinued Medications Generic Name Dose Route Start Last Admin Trade Name María PRN Reason Stop Dose Admin Ketorolac Tromethamine 30 mg 04/07/20 08:47 04/07/20 08:48 Toradol 30 Mg Injection IM 04/07/20 08:48 30 mg STAT ONE Administration Ketorolac Tromethamine Confirm 04/07/20 08:47 Toradol 30 Mg Injection Administered 04/07/20 08:48 Dose 30 mg .ROUTE .STGood Start Genetics-MED ONE - Progress Progress: improved Progress Note: 04/07/20 09:59 Patient reassessed. Pain improved. X-ray shows levoscoliosis at L4 and partially sacralized L6. Patient has pain over the left SI joint. No urinary complaints. Pain resolved after administration of Toradol. Patient states he did not try taking any [id number] analgesics for his pain. Work note provided. Patient to return to work on Monday as long as symptoms have resolved. Patient agrees to follow-up with his primary care doctor within 48 hours for reevaluation. He voiced no other complaints or concerns at this time. Will discharge home Counseled pt/family regarding: diagnosis, need for follow-up, rad results - Departure Departure Disposition: Home Clinical Impression: Low back pain, Scoliosis Condition: Stable Critical Care Time: No Referrals: DOCTOR,NO FAMILY [Primary Care Provider] - GM SAUCEDO [ACTIVE STAFF] - Instructions: Low Back Pain (DC) Forms: Work/School Release Form Prescriptions: Ketorolac Tromethamine [Toradol] 10 mg PO TID 5 Days #15 tablet
[2020-04-07 10:01] VITALS: BP 126/78; PULSE 82; O2SAT 98
== END 2020-04-07 10:01 | disposition home or self-care (01) ==
LOC: ED 08:34
DX: M54.5 Low back pain (principal); M41.9 Scoliosis, unspecified
CPT/HCPCS: 72100; 96372; 99284; J1885

== ENCOUNTER 2020-05-13 20:43 | Emergency (ER) | payer SELFPAY ==
--- NOTE | 2020-05-13 21:02 | ERPHSYRPT ---
- History of Present Illness Time Seen by Provider: 05/13/20 20:48 Source: patient Exam Limitations: no limitations Physician History: Patient is a 30-year-old male presents to our ED for evaluation status post dental extraction. Patient had tooth #1, 14 and 16 extracted today. Dental extraction occurred today at approximately 330. Patient has been biting down on gauze since her procedure. Patient is concerned because the gauze has pink- tinged blood on it. Patient concerned with possible excessive bleeding. Patient advised that bleeding after procedure is normal. That he no longer has to bite down on gauze. Patient also questioned whether he can sleep with a gauze in his mouth. I advised patient that he should not sleep with gauze in his mouth. This risks aspiration. There is no need to continue biting down with gauze at this time. Patient voices no other complaints or concerns at this time. His pain is well controlled. He voices no other complaints at this time. No headache. No nausea or vomiting. No diaphoresis. No neck pain no dizzines s. Timing/Duration: today Severity: mild Modifying Factors: Improves With: nothing Associated Symptoms: denies symptoms Allergies/Adverse Reactions: clindamycin Allergy (Verified 05/13/20 20:48) confusion sulfamethoxazole [From Bactrim] Allergy (Verified 05/13/20 20:48) trimethoprim [From Bactrim] Allergy (Verified 05/13/20 20:48) cephalexin [From Keflex] Adverse Reaction (Verified 05/13/20 20:48) dehydration pt reports when he took keflex he became severely dehydrated, denied any rash, shortness of breath or pain. Home Medications: No Reportable Medications [No Reported Medications] 05/13/20 [History] Hx Tetanus, Diphtheria Vaccination/Date Given: Yes Hx Influenza Vaccination/Date Given: No Hx Pneumococcal Vaccination/Date Given: No - Review of Systems Constitutional: No Symptoms, No Fever, No Chills Eyes: No Symptoms Ears, Nose, & Throat: No Symptoms Respiratory: No Symptoms, No Cough, No Dyspnea Cardiac: No Symptoms, No Chest Pain, No Edema, No Syncope Abdominal/Gastrointestinal: No Symptoms, No Abdominal Pain, No Nausea, No Vomiting, No Diarrhea Genitourinary Symptoms: No Symptoms, No Dysuria Musculoskeletal: No Symptoms, No Back Pain, No Neck Pain Skin: No Symptoms, No Rash Neurological: No Symptoms, No Dizziness, No Focal Weakness, No Sensory Changes Psychological: No Symptoms Endocrine: No Symptoms Hematologic/Lymphatic: No Symptoms Immunological/Allergic: No Symptoms All Other Systems: Reviewed and Negative - Past Medical History Pertinent Past Medical History: No Neurological History: No Pertinent History ENT History: No Pertinent History Cardiac History: No Pertinent History Respiratory History: No Pertinent History Endocrine Medical History: No Pertinent History Musculoskeletal History: No Pertinent History GI Medical History: No Pertinent History History: No Pertinent History Psycho-Social History: No Pertinent History Male Reproductive Disorders: No Pertinent History - Past Surgical History Past Surgical History: No Neuro Surgical History: No Pertinent History Cardiac: No Pertinent History Respiratory: No Pertinent History Gastrointestinal: No Pertinent History Genitourinary: No Pertinent History Musculoskeletal: No Pertinent History Male Surgical History: No Pertinent History - Social History Smoking Status: Current every day smoker How long have you smoked: 15 yrs Exposure to second hand smoke: Yes Drug Use: none Patient Lives Alone: Yes Significant Family History: no pertinent family hx - Nursing Vital Signs Nursing Vital Signs: Initial Vital Signs Temperature 98.1 F 05/13/20 20:44 Pulse Rate 65 05/13/20 20:44 Respiratory Rate 16 05/13/20 20:44 Blood Pressure 154/80 05/13/20 20:44 O2 Sat by Pulse Oximetry 97 05/13/20 20:44 Pain Scale Pain Intensity 0 - Physical Exam General Appearance: no apparent distress, alert Eye Exam: PERRL/EOMI, eyes nml inspection Ears, Nose, Throat Exam: normal ENT inspection, TMs normal, pharynx normal, moist mucous membranes, other (Tooth #1, 14 and 16 extracted. No bleeding observed.) Neck Exam: normal inspection, non-tender, supple, full range of motion Respiratory Exam: normal breath sounds, lungs clear, No respiratory distress Cardiovascular Exam: regular rate/rhythm, normal heart sounds, normal peripheral pulses Gastrointestinal/Abdomen Exam: soft, normal bowel sounds, No tenderness, No mass Back Exam: normal inspection, normal range of motion, No CVA tenderness, No vertebral tenderness Extremity Exam: normal inspection, normal range of motion, pelvis stable Neurologic Exam: alert, oriented x 3, cooperative, normal mood/affect, nml cerebellar function, nml station & gait, sensation nml, No motor deficits Skin Exam: normal color, warm, dry, No rash Lymphatic Exam: No adenopathy SpO2: 97 O2 Delivery: Room Air - Course Nursing assessment & vital signs reviewed: Yes - Progress Progress: improved Progress Note: No indication for work-up. Patient advised to discontinue biting down on gauze for hemostasis. Hemostasis achieved. Patient advised not to sleep with gauze in his mouth. Patient has no dental pain at this time. No indication for antibiotics. No indication for work-up. Patient will follow up with his dentist as scheduled. Patient voices no other complaints or concerns at this time. Will discharge home. 05/13/20 21:11 Counseled pt/family regarding: diagnosis, need for follow-up - Departure Departure Disposition: Home Clinical Impression: Encounter for medical screening examination, Pain, dental Condition: Stable Critical Care Time: No Referrals: DOCTOR,NO FAMILY [Primary Care Provider] - VIRGINIA ROBERT MD [ACTIVE STAFF] - Additional Instructions: Discharge/Care Plan SWETHA LOCKE was seen on 05/13/20 in the Emergency Room. The patient was counseled regarding Diagnosis,Lab results, Imaging studies, need for follow up and when to return to the Emergency Room. Prescriptions given: Discharge Note I have spoken with the patient and/or caregivers. I have explained the patient's condition, diagnosis and treatment plan based on the information available to me at this time. I have answered the patient's and/or caregiver's questions and addressed any concerns. The patient and/or caregivers have as good understanding of the patient's diagnosis, condition and treatment plan as can be expected at this point. The vital signs have been stable. The patient's condition is stable and appropriate for discharge from the emergency department. The patient will pursue further outpatient evaluation with the primary care physician or other designated or consulting physician as outlined in the discharge instructions. The patient and/or caregivers are agreeable to this plan of care and follow-up instructions have been explained in detail. The patient and/or caregivers have received these instruction. The patient/and or caregivers are aware that any significant change in condition or worsening of symptoms should prompt an immediate return to this or the closest emergency department or call 911.
[2020-05-13 21:18] VITALS: BP 134/76; PULSE 68; O2SAT 96
== END 2020-05-13 21:18 | disposition home or self-care (01) ==
LOC: ED 20:43
DX: K08.89 Other specified disorders of teeth and supporting structures (principal)
CPT/HCPCS: 99283

== ENCOUNTER 2020-08-09 20:27 | Emergency (ER) | payer SELFPAY ==
[2020-08-09 20:40] VITALS: BP 141/76; PULSE 73; O2SAT 96
--- NOTE | 2020-08-09 21:01 | ERPHSYRPT ---
- History of Present Illness Time Seen by Provider: 08/09/20 20:35 Source: patient Exam Limitations: no limitations Patient Subjective Stated Complaint: Patient states " I have been having pretty bad ear pains/aches since Monday." Triage Nursing Assessment: Patient arrived to ED and ambulated to room without difficulty. Patient gait steady. Patient A/O times 4. Patient able to follow directions without difficulty. Patient with compliants of left ear pain. Patient denies right ear pain. Left ear noted to have large amounts of wax and slight redness and a scab noted. Patient denies any drainage from ear. Patient denies H/A or dizziness. Patient denies N/V. Patient states he has been swimming in the pool alot lately. Patient with HX swimmers ear. Physician History: 30 years old male presented in the ER with 2 days history of gradually worsening left earache, mild to moderate intensity dull aching to sharp nature, better with taking Tylenol. Denies any discharge or difficulty hearing. No sore throat or nasal congestion. Patient does report being involved in swimming lately. Timing/Duration: abrupt onset, persistent, days (2) Severity: moderate ENT Location: ear (L) Prearrival Treatment: over the counter meds Associated Symptoms: ear pain (L), No cough, No fever, No change in hearing, No ear drainage, No facial pain/swelling, No headache, No hearing loss, No jaw pain, No malaise, No nasal congestion/drainage, No nasal foreign body, No ringing of ears, No swollen glands, No sinus infection, No sore throat, No difficulty swallowing Allergies/Adverse Reactions: clindamycin Allergy (Intermediate, Verified 08/09/20 20:38) Rapid Heart Beat confusion sulfamethoxazole [From Bactrim] Allergy (Intermediate, Verified 08/09/20 20:38) Nausea and Vomiting trimethoprim [From Bactrim] Allergy (Intermediate, Verified 08/09/20 20:38) Nausea and Vomiting cephalexin [From Keflex] Adverse Reaction (Intermediate, Verified 08/09/20 20:38) Nausea and Vomiting pt reports when he took keflex he became severely dehydrated, denied any rash, shortness of breath or pain. Home Medications: No Reportable Medications [No Reported Medications] 05/13/20 [History] Hx Tetanus, Diphtheria Vaccination/Date Given: Yes Hx Influenza Vaccination/Date Given: No Hx Pneumococcal Vaccination/Date Given: No Immunizations Up to Date: Yes Travel Risk - International Travel Have you traveled outside of the country in past 3 weeks: No - Coronavirus Screening Are you exhibiting any of the following symptoms?: No Close contact with a COVID-19 positive Pt in past 14-21 Days: No - Vaccine Status Have you recieved a Covid-19 vaccination: No - Review of Systems Constitutional: No Symptoms Eyes: No Symptoms Ears, Nose, & Throat: Ear Pain Respiratory: No Symptoms Cardiac: No Symptoms Musculoskeletal: No Symptoms Skin: No Symptoms Neurological: No Symptoms Hematologic/Lymphatic: No Symptoms Immunological/Allergic: No Symptoms - Past Medical History Pertinent Past Medical History: No Neurological History: No Pertinent History ENT History: No Pertinent History Cardiac History: No Pertinent History Respiratory History: No Pertinent History Endocrine Medical History: No Pertinent History Musculoskeletal History: No Pertinent History GI Medical History: No Pertinent History History: No Pertinent History Psycho-Social History: No Pertinent History Male Reproductive Disorders: No Pertinent History - Past Surgical History Past Surgical History: No Neuro Surgical History: No Pertinent History Cardiac: No Pertinent History Respiratory: No Pertinent History Gastrointestinal: No Pertinent History Genitourinary: No Pertinent History Musculoskeletal: No Pertinent History Male Surgical History: No Pertinent History - Social History Smoking Status: Current every day smoker How long have you smoked: 15 years Exposure to second hand smoke: Yes Drug Use: none Patient Lives Alone: Yes Significant Family History: no pertinent family hx - Nursing Vital Signs Nursing Vital Signs: Initial Vital Signs Temperature 98.3 F 08/09/20 20:38 Pulse Rate 73 08/09/20 20:38 Respiratory Rate 18 08/09/20 20:38 Blood Pressure 141/76 08/09/20 20:38 O2 Sat by Pulse Oximetry 96 08/09/20 20:38 Pain Scale Pain Intensity 5 - Physical Exam General Appearance: no apparent distress, alert Eye Exam: bilateral eye: normal inspection, PERRL, EOMI Ear Exam: right ear: canal normal, left ear: erythema (Canal), tenderness (External auricle movement), bilateral ear: auricle normal, TM normal Nasal Exam: normal inspection Throat Exam: normal, pharynx normal Neck Exam: normal inspection, supple, full range of motion Cardiovascular/Respiratory Exam: normal breath sounds, regular rate/rhythm Neurologic Exam: alert, oriented x 3, cooperative Skin Exam: normal color SpO2 Interpretation: normal SpO2: 96 O2 Delivery: Room Air Ordered Tests: Medication Summary Discontinued Medications Generic Name Dose Route Start Last Admin Trade Name María PRN Reason Stop Dose Admin Ofloxacin 5 ml 08/09/20 20:54 Floxin Otic 5 Ml OT 08/09/20 20:55 STAT ONE - Progress Progress: unchanged Progress Note: 08/09/20 21:00 Patient has otitis externa, started on ofloxacin. Offered pain medication which he refused and does not want any NSAIDs but will continue with Tylenol as it is helping with the pain. Recommending no swimming for at least 10 days. Outpatient follow-up. Counseled pt/family regarding: diagnosis, need for follow-up - Departure Departure Disposition: Home Clinical Impression: Otitis externa Qualifiers: Otitis externa type: diffuse Chronicity: acute Laterality: left Qualified Code(s): H60.312 - Diffuse otitis externa, left ear Condition: Stable Critical Care Time: No Referrals: DOCTOR,NO FAMILY [Primary Care Provider] - VIRGINIA ROBERT MD [ACTIVE STAFF] - Follow Up with PCP/3 days Instructions: Outer Ear Infection (DC) Additional Instructions: Use Tylenol/ibuprofen as needed for pain. Use eardrops given to you 10 drops daily for 7 days. Follow-up with primary care for reevaluation. Return to ER for worsening pain, swelling, decreased hearing, fever chills etc. are if you have any discharge from the ear.
[2020-08-09] MEDS: Floxin Otic 5 ML OT ONE (21:14)
== END 2020-08-09 21:28 | disposition home or self-care (01) ==
LOC: ED 20:27
DX: H60.312 Diffuse otitis externa, left ear (principal)
CPT/HCPCS: 99283; A9270-GY

== ENCOUNTER → 2020-08-30 | Emergency (ER) | payer SELFPAY ==
[~2020-08-30] MED LIST: Augmentin 875-125 Tablet ONE; solu-MEDROL 125 MG ONE
== END ==
LOC: ED 20:32
DX: Z53.9 Procedure and treatment not carried out, unspecified reason (principal)
CPT/HCPCS: J2930; A9270-GY

== ENCOUNTER 2020-09-03 03:45 | Emergency (ER) | payer SELFPAY ==
[2020-09-03] MEDS ORDERED: Augmentin 875-125 Tablet PO STA (04:11)
--- NOTE | 2020-09-03 04:16 | ERPHSYRPT ---
- History of Present Illness Time Seen by Provider: 09/03/20 04:00 Source: patient Exam Limitations: no limitations Patient Subjective Stated Complaint: The patient states that one of his right upper molars has been hurting him since around Monday afternoon 08/28/20. The portia sriram has been at [facility]. Triage Nursing Assessment: . Physician History: Patient is a 30-year-old male presents to our ED for evaluation of dental pain. Patient complains of pain at his right upper molar specifically tooth #1. Symptoms started approximately 1 week ago. Symptoms have been progressive. Pain described as an ache that is localized. Pain worse with mastication. Pain improved with rest. No headache. No difficulty swallowing. Patient tolerating oral secretions well. Symptoms are mild to moderate in intensity. Patient declined pain medication. He took Tylenol prior to arrival. Patient states that he currently has an appointment scheduled with a dentist. Patient voices no other complaints concerns at this time. Timing/Duration: week(s) Severity: mild Modifying Factors: Improves With: other (Mastication and percussion to the involved tooth.) Associated Symptoms: denies symptoms Allergies/Adverse Reactions: clindamycin Allergy (Intermediate, Verified 09/03/20 04:10) Rapid Heart Beat confusion sulfamethoxazole [From Bactrim] Allergy (Intermediate, Verified 09/03/20 04:10) Nausea and Vomiting trimethoprim [From Bactrim] Allergy (Intermediate, Verified 09/03/20 04:10) Nausea and Vomiting cephalexin [From Keflex] Adverse Reaction (Intermediate, Verified 09/03/20 04:10) Nausea and Vomiting pt reports when he took keflex he became severely dehydrated, denied any rash, shortness of breath or pain. Hx Tetanus, Diphtheria Vaccination/Date Given: Yes Hx Influenza Vaccination/Date Given: No Hx Pneumococcal Vaccination/Date Given: No Immunizations Up to Date: Yes Travel Risk - International Travel Have you traveled outside of the country in past 3 weeks: No - Coronavirus Screening Are you exhibiting any of the following symptoms?: No Close contact with a COVID-19 positive Pt in past 14-21 Days: No - Vaccine Status Have you recieved a Covid-19 vaccination: No - Review of Systems Constitutional: No Symptoms, No Fever, No Chills Eyes: No Symptoms Ears, Nose, & Throat: No Symptoms Respiratory: No Symptoms, No Cough, No Dyspnea Cardiac: No Symptoms, No Chest Pain, No Edema, No Syncope Abdominal/Gastrointestinal: No Symptoms, No Abdominal Pain, No Nausea, No Vomiting, No Diarrhea Genitourinary Symptoms: No Symptoms, No Dysuria Musculoskeletal: No Symptoms, No Back Pain, No Neck Pain Skin: No Symptoms, No Rash Neurological: No Symptoms, No Dizziness, No Focal Weakness, No Sensory Changes Psychological: No Symptoms Endocrine: No Symptoms Hematologic/Lymphatic: No Symptoms Immunological/Allergic: No Symptoms All Other Systems: Reviewed and Negative - Past Medical History Pertinent Past Medical History: No Neurological History: No Pertinent History ENT History: No Pertinent History Cardiac History: No Pertinent History Respiratory History: No Pertinent History Endocrine Medical History: No Pertinent History Musculoskeletal History: No Pertinent History GI Medical History: No Pertinent History History: No Pertinent History Psycho-Social History: No Pertinent History Male Reproductive Disorders: No Pertinent History - Past Surgical History Past Surgical History: No Neuro Surgical History: No Pertinent History Cardiac: No Pertinent History Respiratory: No Pertinent History Gastrointestinal: No Pertinent History Genitourinary: No Pertinent History Musculoskeletal: No Pertinent History Male Surgical History: No Pertinent History - Social History Smoking Status: Current every day smoker How long have you smoked: 15 years Exposure to second hand smoke: Yes Drug Use: none Patient Lives Alone: Yes Significant Family History: no pertinent family hx - Nursing Vital Signs Nursing Vital Signs: Initial Vital Signs Temperature 97.6 F 09/03/20 03:58 Pulse Rate 75 09/03/20 03:58 Respiratory Rate 18 09/03/20 03:58 Blood Pressure 134/87 09/03/20 03:58 O2 Sat by Pulse Oximetry 99 09/03/20 03:58 Pain Scale Pain Intensity 0 - Physical Exam General Appearance: no apparent distress, alert Eye Exam: PERRL/EOMI, eyes nml inspection Ears, Nose, Throat Exam: normal ENT inspection, TMs normal, pharynx normal, mo ist mucous membranes, other (Tooth #1 is tender to palpation. The adjacent gingiva is swollen and irritated appearing. No drainage.) Neck Exam: normal inspection, non-tender, supple, full range of motion Respiratory Exam: normal breath sounds, lungs clear, No respiratory distress Cardiovascular Exam: regular rate/rhythm, normal heart sounds, normal peripheral pulses Gastrointestinal/Abdomen Exam: soft, normal bowel sounds, No tenderness, No mass Back Exam: normal inspection, normal range of motion, No CVA tenderness, No vertebral tenderness Extremity Exam: normal inspection, normal range of motion, pelvis stable Neurologic Exam: alert, oriented x 3, cooperative, normal mood/affect, nml cerebellar function, nml station & gait, sensation nml, No motor deficits Skin Exam: normal color, warm, dry, No rash Lymphatic Exam: No adenopathy SpO2 Interpretation: normal SpO2: 99 O2 Delivery: Room Air - Course Nursing assessment & vital signs reviewed: Yes - Progress Progress: improved Progress Note: Patient declined pain medication. Patient received a dose of Augmentin in our ED. A prescription for Augmentin was forwarded to patient's pharmacy. Patient declined pain medication. Patient currently has an appointment scheduled with a dentist. Patient voiced no other complaints at this time. Patient states is ready for discharge. 09/03/20 04:16 Counseled pt/family regarding: diagnosis, need for follow-up - Departure Departure Disposition: Home Clinical Impression: Dental abscess, Pain, dental Condition: Stable Critical Care Time: No Referrals: DOCTOR,NO FAMILY [Primary Care Provider] - Additional Instructions: Discharge/Care Plan CORNELIASWETHA Isabelle was seen on 09/03/20 in the Emergency Room. The patient was counseled regarding Diagnosis,Lab results, Imaging studies, need for follow up and when to return to the Emergency Room. Prescriptions given: Discharge Note I have spoken with the patient and/or caregivers. I have explained the patient's condition, diagnosis and treatment plan based on the information available to me at this time. I have answered the patient's and/or caregiver's questions and addressed any concerns. The patient and/or caregivers have as good understanding of the patient's diagnosis, condition and treatment plan as can be expected at this point. The vital signs have been stable. The patient's condition is stable and appropriate for discharge from the emergency department. The patient will pursue further outpatient evaluation with the primary care physician or other designated or consulting physician as outlined in the discharge instructions. The patient and/or caregivers are agreeable to this plan of care and follow-up instructions have been explained in detail. The patient and/or caregivers have received these instruction. The patient/and or caregivers are aware that any significant change in condition or worsening of symptoms should prompt an immediate return to this or the closest emergency department or call 911. Prescriptions: Amox Tr/Potass Clav. 875 mg [Augmentin 875-125 Tablet] 875 mg PO BID 7 Days #14 tablet
[2020-09-03 04:39] VITALS: BP 127/71; PULSE 86; O2SAT 100
== END 2020-09-03 04:35 | disposition home or self-care (01) ==
LOC: ED 03:45
DX: K04.7 Periapical abscess without sinus (principal); K08.89 Other specified disorders of teeth and supporting structures
CPT/HCPCS: 99284; A9270-GY

== ENCOUNTER 2020-10-21 20:59 | Emergency (ER) | payer SELFPAY ==
[2020-10-21] MEDS ORDERED: Augmentin 875-125 Tablet PO ONE (21:34)
--- NOTE | 2020-10-21 21:39 | ERPHSYRPT ---
- History of Present Illness Time Seen by Provider: 10/21/20 21:19 Source: patient Exam Limitations: no limitations Patient Subjective Stated Complaint: pt states he has had an ear ache and rt jaw pain off and on for a few weeks. has been tgreated with an antibiotic which he finished approx Triage Nursing Assessment: pt alert and oriented, answers questions approp. pt ambulatory with steady gait noted, respiraitons nonlabored with lungs cta. skin warm and dry. Physician History: 30 years old male with history of otitis media previously treated with antibiotics recently presented in the ER again with increasing pain in the right ear with some right jaw pain and buccal mucosa swelling for the last 2 to 3 days with progressive worsening. Has been using [id number] medications. Patient is prone to have multiple otitis media in the past. No fever or chills reported. Timing/Duration: gradual onset, days (3) Severity: moderate ENT Location: ear (R) Prearrival Treatment: over the counter meds Associated Symptoms: ear pain (R), facial pain/swelling, No change in hearing, No ear drainage, No nasal congestion/drainage, No ringing of ears Allergies/Adverse Reactions: clindamycin Allergy (Intermediate, Verified 10/21/20 21:25) Rapid Heart Beat confusion sulfamethoxazole [From Bactrim] Allergy (Intermediate, Verified 10/21/20 21:25) Nausea and Vomiting trimethoprim [From Bactrim] Allergy (Intermediate, Verified 10/21/20 21:25) Nausea and Vomiting cephalexin [From Keflex] Adverse Reaction (Intermediate, Verified 10/21/20 21:25) Nausea and Vomiting pt reports when he took keflex he became severely dehydrated, denied any rash, shortness of breath or pain. Hx Tetanus, Diphtheria Vaccination/Date Given: Yes Hx Influenza Vaccination/Date Given: No Hx Pneumococcal Vaccination/Date Given: No Immunizations Up to Date: Yes Travel Risk - International Travel Have you traveled outside of the country in past 3 weeks: No - Coronavirus Screening Are you exhibiting any of the following symptoms?: No Close contact with a COVID-19 positive Pt in past 14-21 Days: No - Vaccine Status Have you recieved a Covid-19 vaccination: No - Review of Systems Constitutional: No Symptoms Eyes: No Symptoms Ears, Nose, & Throat: Ear Pain, Mouth Pain, Mouth Swelling Respiratory: No Symptoms Cardiac: No Symptoms Musculoskeletal: No Symptoms Skin: No Symptoms Neurological: No Symptoms Hematologic/Lymphatic: No Symptoms - Past Medical History Pertinent Past Medical History: No Neurological History: No Pertinent History ENT History: No Pertinent History Cardiac History: No Pertinent History Respiratory History: No Pertinent History Endocrine Medical History: No Pertinent History Musculoskeletal History: No Pertinent History GI Medical History: No Pertinent History History: No Pertinent History Psycho-Social History: No Pertinent History Male Reproductive Disorders: No Pertinent History - Past Surgical History Past Surgical History: No Neuro Surgical History: No Pertinent History Cardiac: No Pertinent History Respiratory: No Pertinent History Gastrointestinal: No Pertinent History Genitourinary: No Pertinent History Musculoskeletal: No Pertinent History Male Surgical History: No Pertinent History - Social History Smoking Status: Current every day smoker How long have you smoked: 15 years Exposure to second hand smoke: Yes Drug Use: none Patient Lives Alone: Yes Significant Family History: no pertinent family hx - Nursing Vital Signs Nursing Vital Signs: Initial Vital Signs Temperature 98.1 F 10/21/20 21:13 Pulse Rate 77 10/21/20 21:13 Respiratory Rate 16 10/21/20 21:13 Blood Pressure 144/83 10/21/20 21:13 O2 Sat by Pulse Oximetry 100 10/21/20 21:13 Pain Scale Pain Intensity 0 - Physical Exam General Appearance: no apparent distress, alert Eye Exam: bilateral eye: normal inspection, PERRL, EOMI Ear Exam: right ear: swelling (Mild swelling of canal), TM red, left ear: canal normal, TM normal, bilateral ear: auricle normal Nasal Exam: normal inspection Throat Exam: normal, pharynx normal, No dental tenderness, No uvula swelling Neck Exam: normal inspection, supple, full range of motion Cardiovascular/Respiratory Exam: normal breath sounds, regular rate/rhythm Neurologic Exam: alert, oriented x 3, cooperative Skin Exam: normal color SpO2 Interpretation: normal SpO2: 100 O2 Delivery: Room Air - Progress Progress: unchanged Progress Note: 10/21/20 21:39 We will start him on Augmentin. Outpatient follow-up recommended. Counseled pt/family regarding: diagnosis, need for follow-up - Departure Departure Disposition: Home Clinical Impression: Right otitis media Qualifiers: Otitis media type: unspecified Qualified Code(s): H66.91 - Otitis media, unspecified, right ear Condition: Stable Critical Care Time: No Referrals: DOCTOR,NO FAMILY [Primary Care Provider] - VIRGINIA ROBERT MD [ACTIVE STAFF] - Follow Up with PCP/3 days Instructions: Serous Otitis Media (DC) Additional Instructions: Take Tylenol/ibuprofen as needed for pain. Follow-up with primary care physician for reevaluation. Return to ER for worsening. Prescriptions: Amoxicillin/Potassium Clav [Augmentin 875-125 Tablet] 875 mg PO BID 10 Days #19 tablet
[2020-10-21] MEDS ORDERED: Augmentin 875-125 Tablet ONE (21:54)
[2020-10-21 22:00] VITALS: BP 136/74; PULSE 74; O2SAT 97
== END 2020-10-21 22:10 | disposition home or self-care (01) ==
LOC: ED 20:59
DX: H66.11 Chronic tubotympanic suppurative otitis media, right ear (principal)
CPT/HCPCS: 99283; A9270-GY

== ENCOUNTER 2020-10-22 22:38 | Emergency (ER) | payer SELFPAY ==
--- NOTE | 2020-10-22 22:57 | ERPHSYRPT ---
- History of Present Illness Time Seen by Provider: 10/22/20 22:55 Source: patient Exam Limitations: no limitations Patient Subjective Stated Complaint: pt states "I was in here last night for an earache and I woke up this morning with this swelling." Triage Nursing Assessment: pt ambulated into the er; pt is axo x4; c/o swelling to rt lower jaw; pt states that he was in the er last night for a earache; pt states that he was given amoxicillin; pt states that he woke up with swelling to his rt lower jaw; pt has swelling present to rt lower jaw; middle rt ear is red; no swelling to lymph nodes present; no tooth decay present; hypertensive Physician History: Patient is a 30-year-old male presents to our ED with swelling to his right lower jaw. Patient states that he awoke this morning with the swelling. Patient is currently on Augmentin for an otitis media. Patient concerned regarding the swelling of his jaw. Patient states he has been having dental pain for approximately 1 month. Patient currently has an appointment scheduled with a dentist. Pain is well controlled at this time with [id number] analgesics. Patient declined pain medication. No associated chest pain or shortness of breath. No nausea vomiting or diaphoresis. No headache. No trismus. No intraoral lesions. No sublingual masses. Uvula midline. No FIELD EVIDENCE TECHNICIAN. Patient voices no other complaints or concerns at this time. Timing/Duration: today Severity: moderate Modifying Factors: Improves With: other (Precautions of the involved tooth.) Associated Symptoms: denies symptoms Allergies/Adverse Reactions: clindamycin Allergy (Intermediate, Verified 10/22/20 22:44) Rapid Heart Beat confusion sulfamethoxazole [From Bactrim] Allergy (Intermediate, Verified 10/22/20 22:44) Nausea and Vomiting trimethoprim [From Bactrim] Allergy (Intermediate, Verified 10/22/20 22:44) Nausea and Vomiting cephalexin [From Keflex] Adverse Reaction (Intermediate, Verified 10/22/20 22:44) Nausea and Vomiting pt reports when he took keflex he became severely dehydrated, denied any rash, shortness of breath or pain. Hx Tetanus, Diphtheria Vaccination/Date Given: Yes Hx Influenza Vaccination/Date Given: No Hx Pneumococcal Vaccination/Date Given: No Travel Risk - International Travel Have you traveled outside of the country in past 3 weeks: No - Coronavirus Screening Are you exhibiting any of the following symptoms?: No Close contact with a COVID-19 positive Pt in past 14-21 Days: No - Vaccine Status Have you recieved a Covid-19 vaccination: No - Review of Systems Constitutional: No Symptoms, No Fever, No Chills Eyes: No Symptoms Ears, Nose, & Throat: No Symptoms Respiratory: No Symptoms, No Cough, No Dyspnea Cardiac: No Symptoms, No Chest Pain, No Edema, No Syncope Abdominal/Gastrointestinal: No Symptoms, No Abdominal Pain, No Nausea, No Vomiting, No Diarrhea Genitourinary Symptoms: No Symptoms, No Dysuria Musculoskeletal: No Symptoms, No Back Pain, No Neck Pain Skin: No Symptoms, No Rash Neurological: No Symptoms, No Dizziness, No Focal Weakness, No Sensory Changes Psychological: No Symptoms Endocrine: No Symptoms Hematologic/Lymphatic: No Symptoms Immunological/Allergic: No Symptoms All Other Systems: Reviewed and Negative - Past Medical History Pertinent Past Medical History: No Neurological History: No Pertinent History ENT History: No Pertinent History Cardiac History: No Pertinent History Respiratory History: No Pertinent History Endocrine Medical History: No Pertinent History Musculoskeletal History: No Pertinent History GI Medical History: No Pertinent History History: No Pertinent History Psycho-Social History: No Pertinent History Male Reproductive Disorders: No Pertinent History - Past Surgical History Past Surgical History: No Neuro Surgical History: No Pertinent History Cardiac: No Pertinent History Respiratory: No Pertinent History Gastrointestinal: No Pertinent History Genitourinary: No Pertinent History Musculoskeletal: No Pertinent History Male Surgical History: No Pertinent History - Social History Smoking Status: Current every day smoker How long have you smoked: 15 years Exposure to second hand smoke: Yes Drug Use: none Patient Lives Alone: Yes Significant Family History: no pertinent family hx - Nursing Vital Signs Nursing Vital Signs: Initial Vital Signs Temperature 98 F 10/22/20 22:45 Pulse Rate 80 10/22/20 22:45 O2 Sat by Pulse Oximetry 99 10/22/20 22:45 Pain Scale Pain Intensity 2 - Physical Exam General Appearance: no apparent distress, alert Eye Exam: PERRL/EOMI, eyes nml inspection Ears, Nose, Throat Exam: normal ENT inspection, TMs normal, pharynx normal, moist mucous membranes, other (Tooth #30 has a dental abscess. No FIELD EVIDENCE TECHNICIAN, no sublingual masses no intraoral lesions uvula at midline) Neck Exam: normal inspection, non-tender, supple, full range of motion Respiratory Exam: normal breath sounds, lungs clear, No respiratory distress Cardiovascular Exam: regular rate/rhythm, normal heart sounds, normal peripheral pulses Gastrointestinal/Abdomen Exam: soft, normal bowel sounds, No tenderness, No mass Back Exam: normal inspection, normal range of motion, No CVA tenderness, No vertebral tenderness Extremity Exam: normal inspection, normal range of motion, pelvis stable Neurologic Exam: alert, oriented x 3, cooperative, normal mood/affect, sensation nml, No motor deficits Skin Exam: normal color, warm, dry, No rash Lymphatic Exam: No adenopathy SpO2 Interpretation: normal SpO2: 99 O2 Delivery: Room Air - Progress Progress: unchanged Progress Note: Patient has a dental abscess. He is currently on Augmentin. This Augmentin which was given to him for a right otitis media will also cover the dental abscess. No indication for additional antibiotics. Patient's pain is well controlled. Patient currently has an appointment scheduled with his dentist. Patient voices no other complaints concerns at this time. Will discharge home. 10/22/20 23:04 Portions of this note were created with voice recognition technology. There may be grammatical, spelling, punctuation or sound alike errors 10/22/20 23:05 Counseled pt/family regarding: diagnosis, need for follow-up - Departure Departure Disposition: Home Clinical Impression: Dental abscess Condition: Stable Critical Care Time: No Referrals: DOCTOR,NO FAMILY [Primary Care Provider] - NICHOLAS LOMELI [ACTIVE STAFF] - Instructions: Tooth Abscess (DC) Additional Instructions: Discharge/Care Plan SWETHA LOCKE was seen on 10/22/20 in the Emergency Room. The patient was counseled regarding Diagnosis,Lab results, Imaging studies, need for follow up and when to return to the Emergency Room. Prescriptions given: Discharge Note I have spoken with the patient and/or caregivers. I have explained the patient's condition, diagnosis and treatment plan based on the information available to me at this time. I have answered the patient's and/or caregiver's questions and addressed any concerns. The patient and/or caregivers have as good understanding of the patient's diagnosis, condition and treatment plan as can be expected at this point. The vital signs have been stable. The patient's condition is stable and appropriate for discharge from the emergency department. The patient will pursue further outpatient evaluation with the primary care physician or other designated or consulting physician as outlined in the discharge instructions. The patient and/or caregivers are agreeable to this plan of care and follow-up instructions have been explained in detail. The patient and/or caregivers have received these instruction. The patient/and or caregivers are aware that any significant change in condition or worsening of symptoms should prompt an immediate return to this or the closest emergency department or call 911.
[2020-10-22 22:59] VITALS: BP 139/85; PULSE 60
[2020-10-22 23:04] VITALS: O2SAT 99
== END 2020-10-22 23:03 | disposition home or self-care (01) ==
LOC: ED 22:38
DX: K04.7 Periapical abscess without sinus (principal)
CPT/HCPCS: 99283

== ENCOUNTER 2021-02-21 22:56 | Emergency (ER) | payer SELFPAY ==
[2021-02-21 23:31] VITALS: BP 155/88; PULSE 82; O2SAT 99
--- NOTE | 2021-02-21 23:31 | ERPHSYRPT ---
- History of Present Illness Time Seen by Provider: 02/21/21 23:27 Source: patient Exam Limitations: no limitations Physician History: The patient is a 30-year-old male who presents with a chief complaint of pus drainage coming from the gumline of his mandible, specifically on the right side. Of note onset reported was 2 days ago. He denies any dental pain, fever, chills, facial swelling or difficulty swallowing. He states he has had previous drainage coming from the same tooth/side of the mandible at least twice previously with the last episode being 6 months ago. He states he took clindamycin for antibiotic therapy during his last episode but he felt there is a he was getting lightheaded and out of body experience and felt sluggish after taking his medicine and states he is now allergic to it. He has not seen a dentist follow-up for this complaint. Associated Symptoms: No nausea, No vomiting, No abdominal pain, No chest pain, No fever, No headaches Allergies/Adverse Reactions: clindamycin Allergy (Intermediate, Verified 02/21/21 23:31) Rapid Heart Beat confusion sulfamethoxazole [From Bactrim] Allergy (Intermediate, Verified 02/21/21 23:31) Nausea and Vomiting trimethoprim [From Bactrim] Allergy (Intermediate, Verified 02/21/21 23:31) Nausea and Vomiting cephalexin [From Keflex] Adverse Reaction (Intermediate, Verified 02/21/21 23:31) Nausea and Vomiting pt reports when he took keflex he became severely dehydrated, denied any rash, shortness of breath or pain. Hx Tetanus, Diphtheria Vaccination/Date Given: Yes Hx Influenza Vaccination/Date Given: No Hx Pneumococcal Vaccination/Date Given: No Travel Risk - Vaccine Status Have you recieved a Covid-19 vaccination: No - Review of Systems Constitutional: No Symptoms, Fever, No Chills Ears, Nose, & Throat: Other (Pus drainage coming from the lateral aspect of the gumline below number 30), No Mouth Pain, No Mouth Swelling, No Loose Teeth, No Throat Pain, No Throat Swelling, No Painful Swallowing All Other Systems: Reviewed and Negative - Past Medical History Pertinent Past Medical History: No Neurological History: No Pertinent History ENT History: No Pertinent History Cardiac History: No Pertinent History Respiratory History: No Pertinent History Endocrine Medical History: No Pertinent History Musculoskeletal History: No Pertinent History GI Medical History: No Pertinent History History: No Pertinent History Psycho-Social History: No Pertinent History Male Reproductive Disorders: No Pertinent History - Past Surgical History Past Surgical History: No Neuro Surgical History: No Pertinent History Cardiac: No Pertinent History Respiratory: No Pertinent History Gastrointestinal: No Pertinent History Genitourinary: No Pertinent History Musculoskeletal: No Pertinent History Male Surgical History: No Pertinent History - Social History Smoking Status: Current every day smoker How long have you smoked: 15 years Exposure to second hand smoke: Yes Drug Use: none Patient Lives Alone: Yes Significant Family History: no pertinent family hx - Nursing Vital Signs Nursing Vital Signs: Initial Vital Signs Temperature 97.6 F 02/21/21 23:25 Pulse Rate 82 02/21/21 23:25 Respiratory Rate 16 02/21/21 23:25 Blood Pressure 155/88 02/21/21 23:25 O2 Sat by Pulse Oximetry 99 02/21/21 23:25 Pain Scale Pain Intensity 0 - Physical Exam General Appearance: no apparent distress, alert Eye Exam: PERRL/EOMI, eyes nml inspection, No photophobia, No EOM palsy/anisocoria Ears, Nose, Throat Exam: normal ENT inspection, pharynx normal (No evidence of SHANK INSPECTOR or pharyngitis. There is no evidence of Mello), moist mucous membranes, other (The patient was noted to have poor dentition.He did have a small punctate looking abscess noted just below #30 on the lateral aspect of the gumline. I palpated this region with a tongue blade and was able to express a small amount of pus from the affected region. There was evidence of decay to t), No pharyngeal erythema, No tonsillar exudate Neck Exam: normal inspection, non-tender, supple Respiratory Exam: normal breath sounds, lungs clear, airway intact, No chest tenderness, No respiratory distress Cardiovascular Exam: regular rate/rhythm, normal heart sounds, capillary refill <2 sec, No murmur, No friction rub, No gallop Neurologic Exam: alert, oriented x 3 Skin Exam: normal color, warm, dry O2 Delivery: Room Air - Departure Departure Disposition: Home Clinical Impression: Dental abscess Condition: Stable Critical Care Time: No Referrals: DOCTOR,NO FAMILY [Primary Care Provider] - Follow up/PCP as directed Instructions: Tooth Abscess (DC) Prescriptions: Penicillin V Potassium 500 mg PO QID 10 Days #40 tablet Chlorhexidine Gluconate [Peridex] 15 ml MM BID 10 Days #300 ml
== END 2021-02-21 23:45 | disposition home or self-care (01) ==
LOC: ED 22:56
DX: K04.7 Periapical abscess without sinus (principal); Z72.0 Tobacco use
CPT/HCPCS: 99283

== ENCOUNTER 2021-05-05 20:07 | Emergency (ER) | payer MEDICAID ==
[2021-05-05] MEDS ORDERED: Zofran 4 MG/2 ML VIAL ONE (20:30)
[2021-05-05] MEDS ORDERED: Sodium Chloride 0.9% 1000 ML 1,000 ML ONE (20:30)
[2021-05-05] MEDS: Zofran 4 MG/2 ML VIAL IV ONE (20:32)
[2021-05-05] MEDS: Sodium Chloride 0.9% 1000 ML 1,000 ML IV STA (20:32)
--- NOTE | 2021-05-05 20:35 | ERPHSYRPT ---
- History of Present Illness Historian: patient Exam Limitations: no limitations Patient Subjective Stated Complaint: "My stomach doesn't feel good." Triage Nursing Assessment: 31 y/o white male without significant PMH reported acute onset of "not feeling good." around noon today 05/05/21. He reported nausea, vomiting, and diarrhea. Denied any sick contacts. Denied headache, dizziness, chest pain, shortness of breath, dysuria, or hematochezia. Symmetrical chest expansion. heart tones S1/S2 RRR without extra sounds. Lungs vesicular with adequate airflow. Abdomen non-distended, non-surgical, and without peritoneal signs. Bowel sounds present in all quadrants. No noted voluntary/involuntary guarding. Physician History: 31 yo wm w 2hr h/o N/V/D wo abdominal pain. He denies hematemesis/melena/hematochezia/dysuria/hematuria/cough/coryza/chest pain/dyspnea. Timing/Duration: hour(s) (2 hours) Activities at Onset: rest Quality: other (No pain) Abdominal Pain Onset Location: other (No pain) Pain Radiation: other (No pain) Severity of Pain-Max: none Severity of Pain-Current: none Modifying Factors: Improves With: nothing Associated Symptoms: diarrhea, loss of appetite, nausea, vomiting, No back, No chest pain, No diaphoresis, No fever/chills, No fatigue, No headache, No heartburn, No neck pain, No rash, No shortness of breath, No syncope, No weakness Previous symptoms: no prior history Allergies/Adverse Reactions: clindamycin Allergy (Intermediate, Verified 05/05/21 20:17) Rapid Heart Beat confusion sulfamethoxazole [From Bactrim] Allergy (Intermediate, Verified 05/05/21 20:17) Nausea and Vomiting trimethoprim [From Bactrim] Allergy (Intermediate, Verified 05/05/21 20:17) Nausea and Vomiting cephalexin [From Keflex] Adverse Reaction (Intermediate, Verified 05/05/21 20:17) Nausea and Vomiting pt reports when he took keflex he became severely dehydrated, denied any rash, shortness of breath or pain. Hx Tetanus, Diphtheria Vaccination/Date Given: Yes Hx Influenza Vaccination/Date Given: No Hx Pneumococcal Vaccination/Date Given: No Travel Risk - International Travel Have you traveled outside of the country in past 3 weeks: No - Coronavirus Screening Are you exhibiting any of the following symptoms?: Yes Symptoms: Vomiting/Diarrhea - Vaccine Status Have you recieved a Covid-19 vaccination: No - Review of Systems Constitutional: No Symptoms Eyes: No Symptoms Ears, Nose, & Throat: No Symptoms Respiratory: No Symptoms Cardiac: No Symptoms Abdominal/Gastrointestinal: No Symptoms, Nausea, Vomiting, Diarrhea Genitourinary Symptoms: No Symptoms Musculoskeletal: No Symptoms Skin: No Symptoms Neurological: No Symptoms Psychological: No Symptoms Endocrine: No Symptoms Hematologic/Lymphatic: No Symptoms Immunological/Allergic: No Symptoms - Past Medical History Pertinent Past Medical History: No Neurological History: No Pertinent History ENT History: No Pertinent History Cardiac History: No Pertinent History Respiratory History: No Pertinent History Endocrine Medical History: No Pertinent History Musculoskeletal History: No Pertinent History GI Medical History: No Pertinent History History: No Pertinent History Psycho-Social History: No Pertinent History Male Reproductive Disorders: No Pertinent History - Past Surgical History Past Surgical History: No Neuro Surgical History: No Pertinent History Cardiac: No Pertinent History Respiratory: No Pertinent History Gastrointestinal: No Pertinent History Genitourinary: No Pertinent History Musculoskeletal: No Pertinent History Male Surgical History: No Pertinent History - Social History Smoking Status: Current every day smoker How long have you smoked: 15 years Exposure to second hand smoke: Yes Drug Use: none Patient Lives Alone: Yes Significant Family History: no pertinent family hx - Nursing Vital Signs Nursing Vital Signs: Initial Vital Signs Pulse Rate 82 05/05/21 20:08 Respiratory Rate 18 05/05/21 20:08 Blood Pressure 118/75 05/05/21 20:08 O2 Sat by Pulse Oximetry 99 05/05/21 20:08 Pain Scale Pain Intensity 0 WNL - Physical Exam General Appearance: no apparent distress Eye Exam: PERRL/EOMI, eyes nml inspection Ears, Nose, Throat Exam: normal ENT inspection, TMs normal, pharynx normal, moist mucous membranes Neck Exam: normal inspection, non-tender, supple, full range of motion, No meningismus, No mass, No Brudzinski, No Kernig's Respiratory Exam: normal breath sounds, lungs clear, airway intact, No respira tory distress Cardiovascular Exam: regular rate/rhythm, normal heart sounds, normal peripheral pulses, capillary refill <2 sec, No murmur Gastrointestinal/Abdomen Exam: soft, normal bowel sounds, No tenderness, No distention Back Exam: normal inspection, normal range of motion, No CVA tenderness, No vertebral tenderness Extremity Exam: normal inspection, normal range of motion Neurologic Exam: alert, oriented x 3, cooperative, tobacco roller II-XII nml as tested, normal mood/affect, nml cerebellar function, nml station & gait, sensation nml, No motor deficits, No sensory deficit Skin Exam: normal color, warm, dry Lymphatic Exam: No adenopathy SpO2 Interpretation: normal SpO2: 99 O2 Delivery: Room Air Ordered Tests: Active Orders 24 hr Category Date Time Status IV Insertion STAT Care 05/05/21 20:27 Completed Medication Summary Discontinued Medications Generic Name Dose Route Start Last Admin Trade Name María PRN Reason Stop Dose Admin Sodium Chloride 1,000 mls @ 999 mls/hr 05/05/21 20:30 05/05/21 20:32 Sodium Chloride 0.9% 1000 Ml IV 05/05/21 21:30 999 mls/hr .Q1H1M STA Administration Sodium Chloride Confirm 05/05/21 20:30 Sodium Chloride 0.9% 1000 Ml Administered 05/05/21 20:31 Dose 1,000 mls @ ud .ROUTE .STK-MED ONE Ondansetron HCl 4 mg 05/05/21 20:30 05/05/21 20:32 Ondansetron Hcl 4 Mg/2 Ml Vial IV 05/05/21 20:31 4 mg STAT ONE Administration Ondansetron HCl Confirm 05/05/21 20:30 Ondansetron Hcl 4 Mg/2 Ml Vial Administered 05/05/21 20:31 Dose 4 mg .ROUTE .STK-MED ONE - Progress Progress: improved Progress Note: 05/05/21 20:53 1L NS bolus/4mg IV Zofran 05/05/21 21:08 Pt much improved Counseled pt/family regarding: diagnosis, need for follow-up - Departure Departure Disposition: Home Clinical Impression: Nausea & vomiting Condition: Stable Critical Care Time: No Referrals: DOCTOR,NO FAMILY [Primary Care Provider] - Follow up/PCP as directed Instructions: Nausea and Vomiting, Adult (DC) Additional Instructions: Fluids Zofran for nausea/vomiting Follow up with your family MD Return to ER for increasing abdominal pain, temperature greater than 100.5, or inability to hold down fluids Forms: Work/School Release Form Prescriptions: Ondansetron ODT 4 MG [Zofran Odt 4 mg] 4 mg PO Q6HPRN PRN #10 tab PRN Reason: Nausea
[2021-05-05 21:06] VITALS: BP 119/70
[2021-05-05 21:24] VITALS: PULSE 70
[2021-05-06 00:46] VITALS: O2SAT 99
== END 2021-05-05 21:23 | disposition home or self-care (01) ==
LOC: ED 20:07
DX: R11.2 Nausea with vomiting, unspecified (principal); R19.7 Diarrhea, unspecified; Z72.0 Tobacco use
CPT/HCPCS: 36000; 96374; 99284; J2405

== ENCOUNTER 2022-03-17 18:35 | Emergency (ER) | payer SELFPAY ==
[2022-03-17 18:49] VITALS: BP 134/75; O2SAT 99
[2022-03-17] MEDS ORDERED: Augmentin 875-125 Tablet PO ONE (19:09)
--- NOTE | 2022-03-17 19:17 | ERPHSYRPT ---
- History of Present Illness Time Seen by Provider: 03/17/22 18:39 Source: patient Exam Limitations: no limitations Patient Subjective Stated Complaint: C/O right sided, back, lower tooth pain that started around 0200 today. Patient can't get in to see then dentist until t he end of the month. Triage Nursing Assessment: Patient ambulate back to the ER without difficulties. No SOB. He is alert and oriented. Possible cavity noted to right back tooth. No sores noted in mouth. Physician History: 32 years old presented in the ER with chief complaint of right upper jaw molar area pain and swelling sudden onset this morning waking her from sleep, moderate to severe sharp with associated swelling of the face. Or chills reported. Timing/Duration: abrupt onset, this morning Severity: moderate ENT Location: dental Prearrival Treatment: over the counter meds Associated Symptoms: facial pain/swelling, jaw pain, swollen glands, tooth pain Allergies/Adverse Reactions: clindamycin Allergy (Intermediate, Verified 03/17/22 18:41) Rapid Heart Beat confusion sulfamethoxazole [From Bactrim] Allergy (Intermediate, Verified 03/17/22 18:41) Nausea and Vomiting trimethoprim [From Bactrim] Allergy (Intermediate, Verified 03/17/22 18:41) Nausea and Vomiting cephalexin [From Keflex] Adverse Reaction (Intermediate, Verified 03/17/22 18:41) Nausea and Vomiting pt reports when he took keflex he became severely dehydrated, denied any rash, shortness of breath or pain. Hx Tetanus, Diphtheria Vaccination/Date Given: Yes Hx Influenza Vaccination/Date Given: No Hx Pneumococcal Vaccination/Date Given: No Immunizations Up to Date: Yes Travel Risk - International Travel Have you traveled outside of the country in past 3 weeks: No - Coronavirus Screening Are you exhibiting any of the following symptoms?: No Close contact with a COVID-19 positive Pt in past 14-21 Days: No - Vaccine Status Have you recieved a Covid-19 vaccination: No - Review of Systems Constitutional: No Symptoms Eyes: No Symptoms Ears, Nose, & Throat: Mouth Pain Respiratory: No Symptoms Cardiac: No Symptoms Musculoskeletal: No Symptoms Skin: No Symptoms Neurological: No Symptoms Endocrine: No Symptoms - Past Medical History Pertinent Past Medical History: No Neurological History: No Pertinent History ENT History: No Pertinent History Cardiac History: No Pertinent History Respiratory History: No Pertinent History Endocrine Medical History: No Pertinent History Musculoskeletal History: No Pertinent History GI Medical History: No Pertinent History History: No Pertinent History Psycho-Social History: No Pertinent History Male Reproductive Disorders: No Pertinent History - Past Surgical History Past Surgical History: No Neuro Surgical History: No Pertinent History Cardiac: No Pertinent History Respiratory: No Pertinent History Gastrointestinal: No Pertinent History Genitourinary: No Pertinent History Musculoskeletal: No Pertinent History Male Surgical History: No Pertinent History - Social History Smoking Status: Current every day smoker How long have you smoked: 15 years Exposure to second hand smoke: Yes Drug Use: none Patient Lives Alone: Yes Significant Family History: no pertinent family hx - Nursing Vital Signs Nursing Vital Signs: Initial Vital Signs Temperature 98.1 F 03/17/22 18:42 Pulse Rate 80 03/17/22 18:42 Respiratory Rate 18 03/17/22 18:42 Blood Pressure 134/75 03/17/22 18:42 O2 Sat by Pulse Oximetry 99 03/17/22 18:42 Pain Scale Pain Intensity 6 - Physical Exam General Appearance: no apparent distress, alert Eye Exam: bilateral eye: normal inspection, PERRL, EOMI Ear Exam: bilateral ear: auricle normal, canal normal, TM normal Nasal Exam: normal inspection Throat Exam: normal, pharynx normal, dental tenderness (Right upper premolar with gingival swelling. Negative fluctuation.) Neck Exam: normal inspection, non-tender, supple, full range of motion Cardiovascular/Respiratory Exam: normal breath sounds, regular rate/rhythm Neurologic Exam: alert, oriented x 3, employment trainer II-XII nml as tested Skin Exam: normal color SpO2 Interpretation: normal SpO2: 99 O2 Delivery: Room Air Ordered Tests: Medication Summary Discontinued Medications Generic Name Dose Route Start Last Admin Trade Name Freq PRN Reason Stop Dose Admin Amoxicillin/Clavulanate Potassium 875 mg 03/17/22 19:09 Amox Tr/Potassium Clavulanate 875 Mg Tablet PO 03/17/22 19:10 STAT ONE - Progress Progress: unchanged Progress Note: 03/17/22 19:16 32-year-old is evaluated for right upper jaw pain and swelling since morning. No difficulty swallowing. No fever or chills reported. Patient does have gingival swelling with no fluctuation. Offered pain medication which he declined. He started on Augmentin. Outpatient dental follow-up. Counseled pt/family regarding: diagnosis, need for follow-up - Departure Departure Disposition: Home Clinical Impression: Dental infection Condition: Stable Critical Care Time: No Referrals: DOCTOR,NO FAMILY [Primary Care Provider] - Follow up/PCP as directed Instructions: Tooth Abscess (DC), Dental Pain (DC) Additional Instructions: Take Tylenol/ibuprofen as needed for pain. Follow-up with primary dentist for reevaluation. Return to ER for worsening pain swelling, fever chills etc. Prescriptions: Ibuprofen 600 mg PO Q6HPRN PRN 10 Days #20 tablet PRN Reason: Pain Amox Tr/Potass Clav. 875 mg [Augmentin 875-125 Tablet] 875 mg PO BID #14 tablet
[2022-03-17] MEDS ORDERED: Augmentin 875-125 Tablet ONE (19:19)
[2022-03-17 19:54] VITALS: PULSE 82
== END 2022-03-17 19:52 | disposition home or self-care (01) ==
LOC: ED 18:35
DX: K04.7 Periapical abscess without sinus (principal); R68.84 Jaw pain; Z28.310 Unvaccinated for COVID-19; Z72.0 Tobacco use
CPT/HCPCS: 99281; A9270-GY

== ENCOUNTER 2022-07-12 22:27 | Emergency (ER) | payer SELFPAY ==
[2022-07-12] MEDS ORDERED: Augmentin 875-125 Tablet PO ONE (23:18)
--- NOTE | 2022-07-12 23:27 | ERPHSYRPT ---
- History of Present Illness Time Seen by Provider: 07/12/22 23:00 Source: patient Exam Limitations: no limitations Patient Subjective Stated Complaint: pt states that his mothers cat bit and scratched him Triage Nursing Assessment: pt ambulated into the er; pt is axo x4; c/o swelling to rt index finger; pt denies pain; 1+ edema to rt index finger; strong rt radial pulse; 2 puncture wounds to rt index finger; skin PDW; vitals wnl Physician History: Patient is a 32-year-old male presents emergency department for evaluation of a cat bite to the right index finger. Patient was bitten today. Patient states mother's cat is fully vaccinated. Patient up-to-date with his tetanus. Patient observed the area has progressively swelling. Patient came to the ED for an evaluation. No fever. No trauma. Patient denies foreign body sensation at the site of involvement. Patient is otherwise healthy. He voices no other complaints or concerns at this time. Portions of this note were created with voice recognition technology. There may be grammatical, spelling, punctuation or sound alike errors Timing/Duration: today Severity: moderate Modifying Factors: Improves With: nothing Associated Symptoms: denies symptoms Allergies/Adverse Reactions: clindamycin Allergy (Intermediate, Verified 03/17/22 18:41) Rapid Heart Beat confusion sulfamethoxazole [From Bactrim] Allergy (Intermediate, Verified 03/17/22 18:41) Nausea and Vomiting trimethoprim [From Bactrim] Allergy (Intermediate, Verified 03/17/22 18:41) Nausea and Vomiting cephalexin [From Keflex] Adverse Reaction (Intermediate, Verified 03/17/22 18:41) Nausea and Vomiting pt reports when he took keflex he became severely dehydrated, denied any rash, shortness of breath or pain. Hx Tetanus, Diphtheria Vaccination/Date Given: Yes Hx Influenza Vaccination/Date Given: No Hx Pneumococcal Vaccination/Date Given: No Travel Risk - International Travel Have you traveled outside of the country in past 3 weeks: No - Coronavirus Screening Are you exhibiting any of the following symptoms?: No Close contact with a COVID-19 positive Pt in past 14-21 Days: No - Vaccine Status Have you recieved a Covid-19 vaccination: No - Review of Systems Constitutional: No Symptoms, No Fever, No Chills Eyes: No Symptoms Ears, Nose, & Throat: No Symptoms Respiratory: No Symptoms, No Cough, No Dyspnea Cardiac: No Symptoms, No Chest Pain, No Edema, No Syncope Abdominal/Gastrointestinal: No Symptoms, No Abdominal Pain, No Nausea, No Vomiting, No Diarrhea Genitourinary Symptoms: No Symptoms, No Dysuria Musculoskeletal: No Symptoms, No Back Pain, No Neck Pain Skin: No Symptoms, No Rash Neurological: No Symptoms, No Dizziness, No Focal Weakness, No Sensory Changes Psychological: No Symptoms Endocrine: No Symptoms Hematologic/Lymphatic: No Symptoms Immunological/Allergic: No Symptoms All Other Systems: Reviewed and Negative - Past Medical History Pertinent Past Medical History: No Neurological History: No Pertinent History ENT History: No Pertinent History Cardiac History: No Pertinent History Respiratory History: No Pertinent History Endocrine Medical History: No Pertinent History Musculoskeletal History: No Pertinent History GI Medical History: No Pertinent History History: No Pertinent History Psycho-Social History: No Pertinent History Male Reproductive Disorders: No Pertinent History - Past Surgical History Past Surgical History: No Neuro Surgical History: No Pertinent History Cardiac: No Pertinent History Respiratory: No Pertinent History Gastrointestinal: No Pertinent History Genitourinary: No Pertinent History Musculoskeletal: No Pertinent History Male Surgical History: No Pertinent History - Social History Smoking Status: Current every day smoker How long have you smoked: 15 years Exposure to second hand smoke: Yes Drug Use: none Patient Lives Alone: No Significant Family History: no pertinent family hx - Nursing Vital Signs Nursing Vital Signs: Initial Vital Signs Temperature 97.6 F 07/12/22 22:34 Pulse Rate 80 07/12/22 22:34 Respiratory Rate 14 07/12/22 22:34 Blood Pressure 139/88 07/12/22 22:34 O2 Sat by Pulse Oximetry 98 07/12/22 22:34 Pain Scale Pain Intensity 0 - Physical Exam General Appearance: no apparent distress, alert Eye Exam: PERRL/EOMI, eyes nml inspection Ears, Nose, Throat Exam: moist mucous membranes Neck Exam: normal inspection, non-tender, full range of motion Respiratory Exam: normal breath sounds, airway intact, No respiratory distress Cardiovascular Exam: normal heart sounds, normal peripheral pulses Gastrointestinal/Abdomen Exam: soft, normal bowel sounds, No tenderness, No mass Back Exam: normal inspection, normal range of motion, No CVA tenderness, No vertebral tenderness Extremity Exam: normal inspection, normal range of motion, pelvis stable, joint swelling (Some swelling to the involved index finger. Tendon function intact involved digit in both flexion and extension.), other (Right index finger has 2 puncture wounds dorsally. No lymphangitis. There is some soft tissue swelling at the immediate area. No draining lesions. Tendon function intact. Compartments are soft. Cap refill less than 2 seconds.) Neurologic Exam: alert, oriented x 3, cooperative, normal mood/affect, sensation nml, No motor deficits Skin Exam: normal color, warm, dry, No rash Lymphatic Exam: No adenopathy SpO2 Interpretation: normal SpO2: 98 O2 Delivery: Room Air - Course Nursing assessment & vital signs reviewed: Yes Ordered Tests: Medication Summary Discontinued Medications Generic Name Dose Route Start Last Admin Trade Name Freq PRN Reason Stop Dose Admin Amoxicillin/Clavulanate Potassium 875 mg 07/12/22 23:18 07/12/22 23:23 Amox Tr/Potassium Clavulanate 875 Mg Tablet PO 07/12/22 23:19 875 mg STAT ONE Administration - Progress Progress: improved Progress Note: 32-year-old male presents to our ED for evaluation of cat bite. Patient declined pain medication. Patient states that he has gotten Augmentin antibiotic in the past. Patient received a dose of Augmentin in our ED. Patient observed for half hour. Patient had no adverse reaction to it. A prescription for Augmentin was forwarded to patient's pharmacy. A work note was provided. Patient also received a referral for orthopedic follow-up. Patient voices no other complaints or concerns at this time. Portions of this note were created with voice recognition technology. There may be grammatical, spelling, punctuation or sound alike errors 07/13/22 00:02 Complexity of problem addressed is low acute uncomplicated No critical care time Complexity of data reviewed is none. Diagnosis made based on history and physical examination. Risk of complication and or risk morbidity/mortality patient management is moderate. Patient received an oral dose of Augmentin in our ED. A prescription for the same was forwarded to patient's pharmacy. Patient received referral to orthopedic clinic for follow-up. Patient also requested a work note which was provided. Patient voices no other complaints or concerns at this time. Portions of this note were created with voice recognition technology. There may be grammatical, spelling, punctuation or sound alike errors 07/13/22 00:03 Counseled pt/family regarding: diagnosis, need for follow-up - Departure Departure Disposition: Home Clinical Impression: Cat bite Condition: Stable Critical Care Time: No Referrals: DOCTOR,NO FAMILY [Primary Care Provider] - Follow up/PCP as directed Additional Instructions: Discharge/Care Plan SWETHA LOCKE was seen on 07/12/22 in the Emergency Room. The patient was counseled regarding Diagnosis,Lab results, Imaging studies, need for follow up and when to return to the Emergency Room. Prescriptions given: Discharge Note I have spoken with the patient and/or caregivers. I have explained the patient's condition, diagnosis and treatment plan based on the information available to me at this time. I have answered the patient's and/or caregiver's questions and addressed any concerns. The patient and/or caregivers have as good understanding of the patient's diagnosis, condition and treatment plan as can be expected at this point. The vital signs have been stable. The patient's condition is stable and appropriate for discharge from the emergency department. The patient will pursue further outpatient evaluation with the primary care physician or other designated or consulting physician as outlined in the discharge instructions. The patient and/or caregivers are agreeable to this plan of care and follow-up instructions have been explained in detail. The patient and/or caregivers have received these instruction. The patient/and or caregivers are aware that any significant change in condition or worsening of symptoms should prompt an immediate return to this or the closest emergency department or call 911. Forms: Work/School Release Form Prescriptions: Amox Tr/Potass Clav. 875 mg [Augmentin 875-125 Tablet] 875 mg PO BID 7 Days #14 tablet Outpatient Orders: Ortho Referral Time Frame: 1 Day, Facility: [facility], Location: [facility]
[2022-07-13 00:04] VITALS: BP 107/61; PULSE 60
[2022-07-13 00:05] VITALS: O2SAT 98
== END 2022-07-13 00:12 | disposition home or self-care (01) ==
LOC: ED 22:27
DX: S60.470A Other superficial bite of right index finger, initial encounter (principal); W55.01XA Bitten by cat, initial encounter; Z28.310 Unvaccinated for COVID-19; Z72.0 Tobacco use
CPT/HCPCS: 99282; A9270-GY